=== PATIENT | male | born 1980 | race Caucasian/White ===

== ENCOUNTER 2017-11-05 09:30 | Day surgery (SDC) | payer MEDICARE, OTHER ==
[~2017-11-05] VITALS: Ht 167.6 cm; Wt 111.1 kg
[~2017-11-05 09:30] MED LIST: ALBIPROI INH; ALBU90I INH; ALBU90OI INH; ALBU90OI6 INH; ALBU90OI61 INH; AMOCLA875 PO; AMOX1XR PO; ATOR20 PO; AZIT250 PO; Albuterol2.5 MG/0.5 INH; BP MED; BUSP15 PO; Benadryl 50 mg50 MG PO; CEPH500 PO; CIPR500 PO; CODGUAEL PO; CRUTCH3 USE; CYCL10 PO; DIAZ2 PO; DULO30 PO; ESOM20 PO; FLEXERIL; FLUO20 PO; GABA300 PO; HYDACE10B PO; HYDACE5 PO; HYDACE5325 PO; HYDACE7.5 PO; HYDPAM50; HYDPAM50 PO; HYDR1TAB94 PO; IBUP600 PO; IBUP800 PO; KETO10 PO; LEVFLO500 PO; LISI20 PO; LISI20 RIGHTEAR; LISI5 PO; LOVA20 PO; Lotrimin Ultra12 GM TP; META800 PO; METF500 PO; METPRE4DP PO; METR500 PO; NAPR375 PO; NAPR500 PO; NAPR500EC PO; NAPR550 PO; Naprosyn500 MG PO; Norco 10-325 T1 EACH PO; OMEP10ER PO; OMEP20ER PO; OXYACE5T PO; OXYACE7.5T PO; Omeprazole20 M1; Omeprazole20 M1 PO; PAXIL40 MG PO; PRED10 PO; PRED20 PO; PROACE100 PO; PROAIR RESPICL90 MCG; PROC10 PO; PROM25 PO; PROP60 PO; Percocet 5-3251 EACH PO; Prednisone20 MG PO; Propranolol HCl80 MG PO; RANI150 PO; RANITIDINE; ROBITUSSIN NIG118 ML PO; RXHYDMOR2 PO; RXOXYACE PO; RXPROM25 PO; RXTRAM50 PO; Robaxin500 MG PO; SILSUL1TC TOP; SIMV10 PO; SUBOXEN PO; SUBOXONE 12 MG1 EACH SL; SULTRIDS PO; TRAM50 PO; TRAMADOL; TRAZ50 PO; Ultram50 MG PO; VARE1 PO; VENL150ER PO; VENL75ER PO; [UNRECOGNIZED DRUG - REMARK]; [UNRECOGNIZED DRUG - REMARK]
== END 2017-11-05 12:00 | disposition home or self-care (01) ==
LOC: ORSCSDS 09:30
PROVIDERS: Internal Medicine Gastroenterology
PROC: 0DB58ZX Excision of Esophagus, Via Natural or Artificial Opening Endoscopic, Diagnostic (ICD-10-PCS; principal; 2017-11-05 10:45)
DX: K21.9 Gastro-esophageal reflux disease without esophagitis (principal); G47.30 Sleep apnea, unspecified; I10 Essential (primary) hypertension; F51.9 Sleep disorder not due to a substance or known physiological condition, unspecified; E78.5 Hyperlipidemia, unspecified; B19.20 Unspecified viral hepatitis C without hepatic coma; F17.210 Nicotine dependence, cigarettes, uncomplicated; E11.9 Type 2 diabetes mellitus without complications; E66.9 Obesity, unspecified; Z68.41 Body mass index [BMI] 40.0-44.9, adult; Z79.84 Long term (current) use of oral hypoglycemic drugs; Z79.899 Other long term (current) drug therapy
CPT/HCPCS: 82947; 87081; 88305; J7120

== ENCOUNTER 2018-09-11 08:08 | Day surgery (SDC) | payer MEDICARE, OTHER ==
[~2018-09-11] VITALS: Ht 167.6 cm; Wt 104.0 kg
[~2018-09-11 08:08] MED LIST changes: +AMLO10 PO; +Narcan 0.40.4 MG/ML; +SUBOXONE 2 MG-1 EACH SL; +ZESTORETIC 20-121 EA PO
--- NOTE | 2018-09-11 11:17 | NUR ---
09/11/18 1117 [place] INTRASCALING BLOCK COMPLETED IN THE OR. PT TOLERATED PROCEDURE WELL.
--- NOTE | 2018-09-11 12:42 | NUR ---
09/11/[address] AT BEDSIDE. DUONEB GIVEN PER ORDERS O2 VIA FACE MASK ON ARRIVAL TO PACU. PT STATES IT IS HARD TO BREATHE. SATS 86-88% ON ARRIVAL WITH SUPPLEMENTAL OXYGEN. SATS 92% AT THIS TIME.
== END 2018-09-11 13:56 | disposition home or self-care (01) ==
LOC: ORSCSDS 08:08
PROVIDERS: Orthopaedic Surgery
PROC: 0LQ14ZZ Repair Right Shoulder Tendon, Percutaneous Endoscopic Approach (ICD-10-PCS; principal; 2018-09-11 09:30)
PROC: 0RNJ4ZZ Release Right Shoulder Joint, Percutaneous Endoscopic Approach (ICD-10-PCS; principal; 2018-09-11 09:30)
DX: M75.111 Incomplete rotator cuff tear or rupture of right shoulder, not specified as traumatic (principal); M75.41 Impingement syndrome of right shoulder; M75.51 Bursitis of right shoulder; I10 Essential (primary) hypertension; J45.909 Unspecified asthma, uncomplicated; E11.9 Type 2 diabetes mellitus without complications; B19.20 Unspecified viral hepatitis C without hepatic coma; Z87.891 Personal history of nicotine dependence; E66.01 Morbid (severe) obesity due to excess calories; Z68.37 Body mass index [BMI] 37.0-37.9, adult; Z79.899 Other long term (current) drug therapy
CPT/HCPCS: 82947; C1713; J0171; J0690; J1100; J1885; J2250; J2405; J3010; J7120

== ENCOUNTER 2019-05-04 02:40 | Emergency (ER) | payer MEDICARE, OTHER ==
[~2019-05-04] VITALS: Ht 167.6 cm; Wt 106.6 kg
[~2019-05-04 02:40] MED LIST changes: +Cipro500 MG PO
[2019-05-04] MEDS ORDERED: MAVYRET 100-401 EACH (02:58)
[2019-05-04] MEDS ORDERED: SUBOXONE 4 MG-1 EACH (02:58)
[2019-05-04] MEDS ORDERED: Silvadene20 GM TOP (03:12)
== END 2019-05-04 03:51 | disposition home or self-care (01) ==
LOC: ER 02:40
DX: T22.232A Burn of second degree of left upper arm, initial encounter (principal); T31.0 Burns involving less than 10% of body surface; X13.1XXA Other contact with steam and other hot vapors, initial encounter; Z88.8 Allergy status to other drugs, medicaments and biological substances; Z88.6 Allergy status to analgesic agent; Z88.2 Allergy status to sulfonamides; Z88.0 Allergy status to penicillin; Z88.5 Allergy status to narcotic agent; Z79.899 Other long term (current) drug therapy; Z79.84 Long term (current) use of oral hypoglycemic drugs; J45.909 Unspecified asthma, uncomplicated; I10 Essential (primary) hypertension; E78.5 Hyperlipidemia, unspecified; E11.9 Type 2 diabetes mellitus without complications; F17.210 Nicotine dependence, cigarettes, uncomplicated
CPT/HCPCS: 16020; 99283-25

== ENCOUNTER 2020-01-11 22:50 | Emergency (ER) | payer MEDICARE, OTHER ==
[~2020-01-11] VITALS: Ht 165.1 cm; Wt 104.3 kg
[~2020-01-11 22:50] MED LIST changes: +ALBU2.5V5; +Lisinopril2.5 MG; +MAVYRET 100-401 EACH; +METF500; +Percocet 7.5-31 EACH PO; +Prilosec2.5 MG; +SUBOXONE 4 MG-1 EACH; +Silvadene20 GM TOP; +Zofran4 MG PO
[2020-01-12 00:44] LABS: Source, Urine Clean Catch
[2020-01-12 00:46] LABS: BASOPHILS ABSOLUTE AUTO 0.08 K/mm3 (0.00-0.23); BASOPHILS PERCENT AUTO 1 % (0-2); EOSINOPHILS ABSOLUTE AUTO 0.31 K/mm3 (0.00-0.68); EOSINOPHILS PERCENT AUTO 3 % (0-6); Hematocrit 45.9 % (37.0-53.0); Hemoglobin 16.2 g/dL (13.5-17.5); IMMATURE GRAN ABSOLUTE AUTO 0.03 K/mm3 (0.00-0.10); IMMATURE GRAN PERCENT AUTO 0 % (0-1); LYMPHOCYTES ABSOLUTE AUTO 4.08 K/mm3 (0.84-5.20); LYMPHOCYTES PERCENT AUTO 39 % (21-46); MONOCYTES PERCENT AUTO 7 % (4-13); Mean Corpuscular HGB 31.9 pg (26.0-34.0); Mean Corpuscular HGB Conc 35.3 g/dL (31.5-36.5); Mean Corpuscular Volume 90 fL (80-100); Mean Platelet Volume 9.7 fL (9.1-12.4); NEUTROPHILS ABSOLUTE AUTO 5.35 K/mm3 (1.96-9.15); NEUTROPHILS PERCENT AUTO 51 % (41-73); Platelet Count 227 K/mm3 (150-400); RDW Coefficient Variation 12.5 % (11.7-14.2); RDW Standard Deviation 41.9 fL (35.1-46.3); Red Blood Cell Count 5.08 M/mm3 (4.30-5.90); White Blood Cell Count 10.55 K/mm3 (4.00-11.30)
[2020-01-12 00:47] LABS: Bilirubin, Urine Neg (Neg); Blood, Urine 1+ (Neg); Glucose Qualitative, Urine Neg (Neg); Ketones, Urine Neg (Neg); Leukocyte Esterase, Urine Neg (Neg); Nitrite, Urine Neg (Neg); Protein, Urine 2+ (Neg); Urobilinogen, Urine NORM (Normal)
[2020-01-12 00:49] LABS: Appearance, Urine Clear (Clear); Color, Urine Yellow (P-Yellow)
[2020-01-12 00:59] LABS: Bacteria Few /hpf; Red Blood Cells, Urine 0-2 /hpf (0-2); Squamous Epithelial Cells Rare /hpf (Few); White Blood Cells, Urine 0-2 /hpf (0-5)
[2020-01-12 01:11] LABS: Alanine Aminotransfer (ALT/SGP 70 U/L (12-78); Albumin, Blood 3.3 g/dL (3.4-5.0); Albumin/Globulin Ratio 0.6 (0.8-1.8); Alk Phos 69 U/L (50-136); Anion Gap 4 mmol/L (6-16); Aspartate Aminotrans (AST/SGOT 114 U/L (12-37); Bilirubin, Total 0.7 mg/dL (0.1-1.0); Blood Urea Nitrogen 6 mg/dL (8-24); Bun/Creatinine Ratio 10.5 (12.0-20.0); CO2, Blood 30 mmol/L (21-32); Calcium, Blood 8.6 mg/dL (8.5-10.1); Chloride, Blood 100 mmol/L (98-108); Creatinine, Blood 0.57 mg/dL (0.60-1.20); Globulin, Blood 5.5 g/dL (2.2-4.0); Glomerular Filtration Rate >60 (60-); Glucose, Blood 129 mg/dL (70-99); Potassium, Blood 4.5 mmol/L (3.5-5.5); Sodium, Blood 134 mmol/L (136-145); Total Protein, Blood 8.8 g/dL (6.4-8.2)
[2020-01-12] MEDS ORDERED: Norco 5-325 Ta1 EACH PO (03:21)
[2020-01-12] MEDS ORDERED: ONDA4ODT MM (03:21)
== END 2020-01-12 03:34 | disposition home or self-care (01) ==
LOC: ER 22:50
PROVIDERS: Emergency Medicine
DX: K85.90 Acute pancreatitis without necrosis or infection, unspecified (principal); Z88.5 Allergy status to narcotic agent; Z88.8 Allergy status to other drugs, medicaments and biological substances; Z79.84 Long term (current) use of oral hypoglycemic drugs; Z79.899 Other long term (current) drug therapy; J45.909 Unspecified asthma, uncomplicated; I10 Essential (primary) hypertension; K21.9 Gastro-esophageal reflux disease without esophagitis; Z86.19 Personal history of other infectious and parasitic diseases; E11.9 Type 2 diabetes mellitus without complications; F17.200 Nicotine dependence, unspecified, uncomplicated
CPT/HCPCS: 36415; 74177; 80053; 81001; 83690; 85025; 96360; 96374; 96375; 99283-25; J2405; J3010; J7030; Q9967

== ENCOUNTER → 2021-09-27 | Outpatient (CLI) | payer MEDICARE, OTHER ==
[~2021-09-27] MED LIST changes: +ALMACONE SUSPE355 ML PO; +IBUP400 PO; +Norco 5-325 Ta1 EACH PO; +ONDA4ODT MM
== END | disposition home or self-care (01) ==
LOC: LAB SHORT 14:30 → LAB 14:30
PROVIDERS: Family Medicine
DX: M54.06 Panniculitis affecting regions of neck and back, lumbar region (principal); G89.29 Other chronic pain; Z79.891 Long term (current) use of opiate analgesic
CPT/HCPCS: G0480

== ENCOUNTER → 2022-04-20 | Outpatient (CLI) | payer MEDICARE, OTHER ==
[2022-04-20 18:03] LABS: U Opiates Screen DETECTED
[2022-04-20 18:04] LABS: U Amphetamine Screen Not Detected; U Barbituate Screen Not Detected; U Benzodiazapine Screen Not Detected; U Buprenorphine Screen Not Detected; U Cannabinoids Screen Not Detected; U Cocaine Screen Not Detected; U Methadone Screen Not Detected; U Methamphetamine Screen Not Detected; U Oxycodone Screen DETECTED; U Phencyclidine Screen Not Detected; U Propoxyphene Screen Not Detected
== END | disposition home or self-care (01) ==
LOC: LAB 15:10 → LAB SHORT 15:10
PROVIDERS: Family Medicine
DX: Z51.81 Encounter for therapeutic drug level monitoring (principal); Z79.899 Other long term (current) drug therapy

== ENCOUNTER → 2022-05-12 | Outpatient (CLI) | payer MEDICARE, OTHER ==
[2022-05-12 17:15] LABS: BASOPHILS PERCENT AUTO 1 % (0-2); EOSINOPHILS ABSOLUTE AUTO 0.18 K/mm3 (0.00-0.68); EOSINOPHILS PERCENT AUTO 2 % (0-6); Hematocrit 41.3 % (37.0-53.0); Hemoglobin 15.2 g/dL (13.5-17.5); IMMATURE GRAN ABSOLUTE AUTO 0.03 K/mm3 (0.00-0.10); IMMATURE GRAN PERCENT AUTO 0 % (0-1); LYMPHOCYTES ABSOLUTE AUTO 1.46 K/mm3 (0.84-5.20); LYMPHOCYTES PERCENT AUTO 13 % (21-46); MONOCYTES ABSOLUTE AUTO 1.25 K/mm3 (0.16-1.47); MONOCYTES PERCENT AUTO 11 % (4-13); Mean Corpuscular HGB 33.1 pg (26.0-34.0); Mean Corpuscular HGB Conc 36.8 g/dL (31.5-36.5); Mean Corpuscular Volume 90 fL (80-100); Mean Platelet Volume 12.7 fL (9.1-12.4); NEUTROPHILS ABSOLUTE AUTO 7.98 K/mm3 (1.96-9.15); NEUTROPHILS PERCENT AUTO 73 % (41-73); Platelet Count 72 K/mm3 (150-400); RDW Coefficient Variation 15.3 % (11.7-14.2); RDW Standard Deviation 50.3 fL (35.1-46.3); Red Blood Cell Count 4.59 M/mm3 (4.30-5.90)
[2022-05-12 17:55] LABS: Alanine Aminotransfer (ALT/SGP 40 U/L (12-78); Albumin, Blood 2.5 g/dL (3.4-5.0); Albumin/Globulin Ratio 0.4 (0.8-1.8); Alk Phos 193 U/L (50-136); Anion Gap 8 mmol/L (6-16); Aspartate Aminotrans (AST/SGOT 97 U/L (12-37); Bilirubin, Direct 1.8 mg/dL (0.0-0.3); Bilirubin, Indirect 1.4 mg/dL (0.1-0.7); Bilirubin, Total 3.2 mg/dL (0.1-1.0); Blood Urea Nitrogen 18 mg/dL (8-24); Bun/Creatinine Ratio 15.4 (12.0-20.0); CHOL/HDL RATIO 9.4; CO2, Blood 26 mmol/L (21-32); Calcium, Blood 9.1 mg/dL (8.5-10.1); Chloride, Blood 104 mmol/L (98-108); Cholesterol 245 mg/dL (50-200); Creatinine, Blood 1.17 mg/dL (0.60-1.20); Free Thyroxine 1.23 ng/dL (0.70-1.60); Globulin, Blood 5.7 g/dL (2.2-4.0); Glomerular Filtration Rate 81 (60-); Glucose, Blood 108 mg/dL (70-99); HDL Cholesterol 26 mg/dL (>39); Low Density Lipoprotein Chol 157 mg/dL (0-110); Phosphorus, Blood 3.3 mg/dL (2.5-4.9); Potassium, Blood 4.1 mmol/L (3.5-5.5); Sodium, Blood 138 mmol/L (136-145); Total Protein, Blood 8.2 g/dL (6.4-8.2); Triglycerides 310 mg/dL (30-160); Very Low Density Lipoprot Chol 62 mg/dL (6-32)
[2022-05-24 12:09] LABS: HBSAG SCREEN Negative (Negative); HCV AB >11.0 (0.0-0.9); HEP A AB, IGM Negative (Negative); HEP B CORE AB, TOT Negative (Negative)
== END | disposition home or self-care (01) ==
LOC: LAB SHORT 16:18 → LAB 16:18
PROVIDERS: Family Medicine
DX: E11.8 Type 2 diabetes mellitus with unspecified complications (principal); E78.5 Hyperlipidemia, unspecified; R10.11 Right upper quadrant pain; R74.8 Abnormal levels of other serum enzymes
CPT/HCPCS: 80053; 80061; 82248; 83036; 84100; 84439; 84443; 85025; 86704; 86708; 86803; 87340

== ENCOUNTER 2022-07-12 21:44 | Inpatient (IN) | payer MEDICARE, OTHER ==
[~2022-07-12] VITALS: Ht 167.6 cm; Wt 92.1 kg
[2022-07-12 22:32] LABS: BASOPHILS PERCENT AUTO 1 % (0-2); EOSINOPHILS PERCENT AUTO 1 % (0-6); Hematocrit 38.1 % (37.0-53.0); Hemoglobin 13.7 g/dL (13.5-17.5); IMMATURE GRAN ABSOLUTE AUTO 0.04 K/mm3 (0.00-0.10); IMMATURE GRAN PERCENT AUTO 0 % (0-1); LYMPHOCYTES ABSOLUTE AUTO 4.07 K/mm3 (0.84-5.20); LYMPHOCYTES PERCENT AUTO 26 % (21-46); MONOCYTES ABSOLUTE AUTO 1.77 K/mm3 (0.16-1.47); MONOCYTES PERCENT AUTO 11 % (4-13); Mean Corpuscular HGB 35.5 pg (26.0-34.0); Mean Corpuscular Volume 99 fL (80-100); Mean Platelet Volume 10.9 fL (9.1-12.4); NEUTROPHILS ABSOLUTE AUTO 9.72 K/mm3 (1.96-9.15); NEUTROPHILS PERCENT AUTO 62 % (41-73); Platelet Count 142 K/mm3 (150-400); RDW Coefficient Variation 18.7 % (11.7-14.2); RDW Standard Deviation 67.5 fL (35.1-46.3); Red Blood Cell Count 3.86 M/mm3 (4.30-5.90)
[2022-07-12 22:52] LABS: Albumin, Blood 2.6 g/dL (3.4-5.0); Albumin/Globulin Ratio 0.5 (0.8-1.8); Bilirubin, Total 2.5 mg/dL (0.1-1.0); Bun/Creatinine Ratio 13.2 (12.0-20.0); Calcium, Blood 9.2 mg/dL (8.5-10.1); Creatinine, Blood 0.76 mg/dL (0.60-1.20); Globulin, Blood 5.1 g/dL (2.2-4.0); Potassium, Blood 4.3 mmol/L (3.5-5.5); Total Protein, Blood 7.7 g/dL (6.4-8.2)
[2022-07-12 23:13] LABS: Influenza A, PCR NEGATIVE (NEGATIVE); Influenza B, PCR NEGATIVE (NEGATIVE); Resp Syncytial Virus, PCR NEGATIVE (NEGATIVE); SARS-Cov-2 (COVID-19) PCR, MMC NEGATIVE (NEGATIVE)
[2022-07-13] MEDS ORDERED: FOLI1 PO (02:26)
[2022-07-13] MEDS ORDERED: MAGNESIUM OXID500 MG PO (02:26)
[2022-07-13] MEDS ORDERED: B-1100 M1 PO (02:26)
[2022-07-13] MEDS ORDERED: ERGO50000 PO (02:26)
[2022-07-13] MEDS ORDERED: LACT10SY PO (02:26)
[2022-07-13] MEDS ORDERED: LEVE500 PO (02:27)
[2022-07-13 08:27] LABS: BASOPHILS ABSOLUTE AUTO 0.13 K/mm3 (0.00-0.23); BASOPHILS PERCENT AUTO 1 % (0-2); EOSINOPHILS PERCENT AUTO 1 % (0-6); Hematocrit 36.7 % (37.0-53.0); Hemoglobin 13.3 g/dL (13.5-17.5); IMMATURE GRAN ABSOLUTE AUTO 0.05 K/mm3 (0.00-0.10); IMMATURE GRAN PERCENT AUTO 0 % (0-1); LYMPHOCYTES ABSOLUTE AUTO 4.87 K/mm3 (0.84-5.20); LYMPHOCYTES PERCENT AUTO 31 % (21-46); MONOCYTES ABSOLUTE AUTO 1.52 K/mm3 (0.16-1.47); MONOCYTES PERCENT AUTO 10 % (4-13); Mean Corpuscular HGB 35.4 pg (26.0-34.0); Mean Corpuscular HGB Conc 36.2 g/dL (31.5-36.5); Mean Corpuscular Volume 98 fL (80-100); Mean Platelet Volume 10.6 fL (9.1-12.4); NEUTROPHILS ABSOLUTE AUTO 8.89 K/mm3 (1.96-9.15); NEUTROPHILS PERCENT AUTO 57 % (41-73); Platelet Count 128 K/mm3 (150-400); RDW Coefficient Variation 18.7 % (11.7-14.2); RDW Standard Deviation 66.7 fL (35.1-46.3); Red Blood Cell Count 3.76 M/mm3 (4.30-5.90); White Blood Cell Count 15.66 K/mm3 (4.00-11.30)
[2022-07-13 08:38] LABS: Albumin, Blood 2.4 g/dL (3.4-5.0); Albumin/Globulin Ratio 0.5 (0.8-1.8); Bilirubin, Total 3.1 mg/dL (0.1-1.0); Bun/Creatinine Ratio 13.4 (12.0-20.0); Creatinine, Blood 0.82 mg/dL (0.60-1.20); Globulin, Blood 4.6 g/dL (2.2-4.0); Potassium, Blood 4.3 mmol/L (3.5-5.5)
--- NOTE | 2022-07-13 14:48 | NUR ---
REPORT RECIEVED FROM ER NURSE AT 3675.
--- NOTE | 2022-07-13 15:29 | NUR ---
PT ARRIVED TO PCU AT 1500 VIA GURNEY AND ON RA. PT ABLE TO TRANSFER SELF FROM GURNEY TO PCU ON HIS OWN, INDEPENDENT, TOLERATED WELL. PT REPORTS LEFT SIDED CHEST PAIN THAT RADIATES TO HIS LEFT SIDE OF HIS NECK AND HIS LEFT AXILLARY, PAIN 9/10. NOTIFIED, AWAITING PAIN MED ORDERS. PT ORIENTED TO ROOM. PT WAS ABLE TO TRANSFER SELF TO BATHROOM, INDEPENDENT, TOLERATED WELL. PT LEFT PCU FOR STRESS TEST AT 1530 VIA WHEELCHAIR AND ON RA.
--- NOTE | 2022-07-13 17:26 | NUR ---
UPDATE PT REPORTED 9/10 CHEST PAIN THAT RAFIATES TO HIS LEFT NECK AND LEFT AXILLARY. DR NOTIFIED, TORADOL ORDERED AND GIVEN. PT THEN REPORTS SEVERE HEADACHE FROM TORADOL AND NO CHEST PAIN RELIEF. PT WAS ASKED IF HE TAKES ANYTHING THAT HAS HELPED HIS PAIN LEVEL, PT RESPONDED "WHAT IS THAT MEDICATION THAT THEY LACE WITH THINGS? THE ONE THAT IS LIKE FENT OR SOMETHING." WHEN THIS RN MENTIONED FENTANYL, PT REPOSNDED "YEAH. THEY SWITCHED MY MEDICATION TO THAT AND IT WORKED." THIS RN INFORMED PT THAT THE DR GAVE A STRICT ORDER OF NO NARCOTICS. THIS RN AGAIN CONTACTED DR ABOUT UNRELIEVED PAIN, SAID TO ORDER TRAMADOL. PT SAID "I CANNOT TAKE TRAMADOL. IT CLOSED OFF MY AIRWAY LAST TIME I TOOK IT AND I HAD TO BE ADMITTED TO THE HOSPITAL." PT ASKED FOR THE FENTANYL AGAIN. PT REMINDED THAT NO NARCOTICS CAN BE ORDERED. PT THEN REPOSDED "I MIGHT JUST WAIT FOR MY THEN. I MIGHT JUST HAVE TO LEAVE BECAUSE I CANNOT TAKE THIS." PT INFORMED THAT HE IS ABLE TO LEAVE BUT IT WOULD BE AGAINST MEDICAL ADVICE AND THAT HE WOULD NEED TO FILL OUT A AMA DOCUMENT. PT INFORMED THAT IT IS HIGLY RECOMMENDED TO STAY SINCE HE IS ACTIVELY HAVING CHEST PAIN AND THAT HE IS PREPARED TO HAVE A STRESS TEST COMPLETED IN THE MORNING.
[2022-07-14 04:07] LABS: BASOPHILS ABSOLUTE AUTO 0.09 K/mm3 (0.00-0.23); BASOPHILS PERCENT AUTO 1 % (0-2); EOSINOPHILS ABSOLUTE AUTO 0.26 K/mm3 (0.00-0.68); EOSINOPHILS PERCENT AUTO 2 % (0-6); Hematocrit 35.7 % (37.0-53.0); Hemoglobin 13.3 g/dL (13.5-17.5); IMMATURE GRAN ABSOLUTE AUTO 0.04 K/mm3 (0.00-0.10); IMMATURE GRAN PERCENT AUTO 0 % (0-1); LYMPHOCYTES ABSOLUTE AUTO 4.07 K/mm3 (0.84-5.20); LYMPHOCYTES PERCENT AUTO 29 % (21-46); MONOCYTES ABSOLUTE AUTO 1.75 K/mm3 (0.16-1.47); MONOCYTES PERCENT AUTO 13 % (4-13); Mean Corpuscular HGB 36.1 pg (26.0-34.0); Mean Corpuscular HGB Conc 37.3 g/dL (31.5-36.5); Mean Corpuscular Volume 97 fL (80-100); Mean Platelet Volume 11.6 fL (9.1-12.4); NEUTROPHILS ABSOLUTE AUTO 7.73 K/mm3 (1.96-9.15); NEUTROPHILS PERCENT AUTO 55 % (41-73); Platelet Count 143 K/mm3 (150-400); RDW Coefficient Variation 18.3 % (11.7-14.2); RDW Standard Deviation 64.7 fL (35.1-46.3); Red Blood Cell Count 3.68 M/mm3 (4.30-5.90); White Blood Cell Count 13.94 K/mm3 (4.00-11.30)
[2022-07-14 04:28] LABS: Albumin, Blood 2.1 g/dL (3.4-5.0); Albumin/Globulin Ratio 0.4 (0.8-1.8); Bilirubin, Total 3.6 mg/dL (0.1-1.0); Bun/Creatinine Ratio 18.2 (12.0-20.0); Creatinine, Blood 0.94 mg/dL (0.60-1.20); Globulin, Blood 4.8 g/dL (2.2-4.0); Potassium, Blood 5.1 mmol/L (3.5-5.5); Total Protein, Blood 6.9 g/dL (6.4-8.2)
--- NOTE | 2022-07-14 05:54 | NUR ---
NIGHT SUPERVISOR SUMMARY ASSUMED CARE OF PT AT 1900. HE IS ALERT AND ORIENTED X4, COOPERATIVE, THOUGH A BIT AGITATED WITH STAYING IN THE HOSPITAL. HE CONTINUES TO COMPLAIN OF 8/10 PAIN THAT HE STATES STARTS ON HIS SIDES AND WRAPS AROUND THE UPPER ABDOMEN INTO HIS LOWER CHEST. PT MEDICATED X2 WITH TORADOL. HE WAS INFORMED OF THE INABILITY TO MEDICATE WITH NARCOTICS DUE TO STRESS TEST THIS AM. PT UNDERSTANDING OF THIS. TROPONINS WERE TRENDING DOWN AND HAD A SLIGHT RISE TO 302 AT 0000 SO REPEAT WAS DRAWN AT 0400, THAT WAS DECREASED TO 288. PT WAS UNABLE TO SLEEP THIS SHIFT DESPITE MELATONIN AND NOC VISTARIL. BP SLIGHTLY ELEVATED THIS AM SO GIVEN IV HYDRALAZINE. PT HAS BEEN SINUS IN THE 50S AND 60S ON TELE. NO COMPLAINTS OF SOB AND SATTING >92%.
[2022-07-14 07:20] LABS: C-REACTIVE PROTEIN, EXT RANGE <0.290 mg/dL (0.000-0.300)
[2022-07-14 07:23] LABS: CPK Creatine Kinase 83 U/L (39-308)
--- NOTE | 2022-07-14 14:18 | NUR ---
UPDATEAT 1414, PT WAS SEEN BY THIS RN WALKING IN THE HALLWAY TOWARDS SURGICAL UNIT. DURING SHIFT CHANGE, THE NIGHT RN NOTIFIED THIS RN THAT THE PT HAS HIS SISTER ON THE SURGICAL FLOOR. PT WALKED BY, THIS RN ASKED PT IF HE WAS HEADING TO HIS SISTER'S ROOM. PT ANSWERED "YES" AND HEADED THROUGH THE DOORS TO THE SURGICAL UNIT. Sensor Tower NOTIFIED THIS RN THAT THE PT IS NO LONGER ON TELEMTRY AT 1420.
--- NOTE | 2022-07-14 16:38 | NUR ---
AMA UPDATE PT LEFT AMA AT 1505. AT 1445 THIS RN WAS NOTIFIED BY IMPORT CLERK THAT PT IS IRRITATED ABOUT NOT GOING HOME YET. THIS RN WENT TO PT ROOM TO ASSESS PT. PT INSTANTLY ASKED FOR HIS IV TO BE REMOVED STATING "YOU NEED TO TAKE THIS OUT SO I CAN GO HOME." PT STATED "I AM NOT GETTING THE MEDS THAT I NEED. THAT TORADOL SHIT MAKES MY ASS BURN. THAT SHIT IS NOT WORKING." THIS RN INFORMED PT THAT DISCHARGE INSTRUCTIONS HAVE NOT BEEN ORDERED YET AND THAT THE DOCTOR HAS CAME BY TO INFORM THIS RN THAT SHE IS STILL WAITING FOR THE RESULTS OF THE STRESS TEST AND ABDOMEN ULTRASOUND. PT RESPONDED "NO THAT IS BULLSHIT. THE DOCTOR TOLD ME WHEN I WAS GETTING DONE WITH MY STRESS TEST, THAT THE RESULTS WOULD BE DONE IN LIKE 20 MINUTES." PT WAS INFORMED THAT MARIA ISABEL CANNOT FORCE HIM TO STAY BUT IF HE WAS TO LEAVE IT WOULD BE AGAINST MEDICAL ADVICE AND THAT HE WOULD HAVE TO FILL OUT A AMA DOCUMENT. PT STATED "GET THE PAPER THEN." THIS RN CONTACTED DOCTOR TO NOTIFY HER THAT THE PT WAS ASKING TO AMA. DOCTOR SAID THAT SHE WOULD COME TALK TO HIM. DOCTOR WAS INFORMED THAT PT WAS PRETTY WORKED UP IN THE ROOM AND THIS RN STATED THAT HE WOULD BE PRESENT WITH DOCTOR WHEN SHE CAME TO TALK TO PT. DOCTOR ENTERED PT TYSON WITH THIS RN AT 1500. DR INFORMED PT THAT THE RESULTS OF THE ULTRASOUND HAVE NOT BEEN COMPLETED YET BUT STATED THAT HIS STRESS TEST WAS NORMAL. PT SAID "OK, THAT IS FINE." PT CONTINUOUSLY STATED THAT HE WANTS TO LEAVE. DOCTOR INFORMED PT THAT HE COULD LEAVE BUT IT WOULD BE AGAINST MEDICAL ADVICE. PT RESPONDED "NO IT IS NOT. I WAS TOLD THAT I WOULD BE OUT OF HERE BY 3 O'CLOCK." PT STATED THAT HE HAS ALREADY CONTACTED HIS PRIMARY DOCTOR AND THAT "SHE WILL GIVE ME THE MEDS THAT I NEED." PT THEN STATED THAT "NO ONE HAS COME TO SEE ME SINCE 9 O'CLOCK THIS MORNING. I HAVE CALLED WITH THE REMOTE AND NO ONE EVER CAME." THIS RN INFORMED PT THAT MANY STAFF, INCLUDING THE DOCTOR, HAVE DONE ROUNDS ON HIM AND THAT HE WAS LEFT ALONE BECAUSE HE WAS FINALLY SLEEPING AT THE TIME. PT RESPONDED "NO. EVERYONE ALWAYS WOKE ME UP ALL THE OTHER TIMES." PT THEN REQUESTED TO LEAVE AGAIN. THIS RN BEGAN TO GO OVER THE AMA DOCUMENT WITH PT. PT RESPONDED "I'M NOT SIGNING THAT SHIT. I'M NOT LEAVING AMA." DOCTOR STATED THAT IT WOULD NOT BE AGAINST HIS WILL. PT STATED AGAIN THAT HE WOULD "NOT SIGN IT." DOCTOR TOLD PT THAT IS FINE. PT ASKED FOR IV TO BE REMOVED. THIS RN REMOVED IV, IV INTACT. PT STATED HE WAS WALKING OUT OF ROOM, "MY PRIMARY DOCTOR WILL GIVE ME THE MEDS THAT I NEED."
== END 2022-07-14 15:21 | disposition left against medical advice (07) | DRG 205 ==
LOC: ER 21:44 → ERHOLD 07-13 05:20 → PCU 07-13 14:59
PROVIDERS: Family Medicine; Physician Assistant; ADMIT Internal Medicine
DX: M94.0 Chondrocostal junction syndrome [Tietze] (principal); I21.A1 Myocardial infarction type 2; E72.20 Disorder of urea cycle metabolism, unspecified; E87.1 Hypo-osmolality and hyponatremia; K86.1 Other chronic pancreatitis; Z20.822 Contact with and (suspected) exposure to COVID-19; Z28.21 Immunization not carried out because of patient refusal; J45.909 Unspecified asthma, uncomplicated; I10 Essential (primary) hypertension; K21.9 Gastro-esophageal reflux disease without esophagitis; F17.210 Nicotine dependence, cigarettes, uncomplicated; E78.5 Hyperlipidemia, unspecified; K70.30 Alcoholic cirrhosis of liver without ascites; R56.9 Unspecified convulsions; D69.59 Other secondary thrombocytopenia; E11.9 Type 2 diabetes mellitus without complications; Z98.890 Other specified postprocedural states; Z88.1 Allergy status to other antibiotic agents; Z88.6 Allergy status to analgesic agent; Z79.899 Other long term (current) drug therapy
CPT/HCPCS: 0241U; 36415; 71046; 76705; 78452; 80053; 82140; 82550; 82947; 83690; 84484; 85025; 85651; 86140; 93005; 93010; 93017; 96374; 96375; 99284-25; A9270; A9500; C8929; J0280; J0360; J1650; J1885; J2785; J3010; Q9957

== ENCOUNTER 2022-07-23 14:52 | Inpatient (IN) | payer MEDICARE, OTHER ==
[~2022-07-23] VITALS: Ht 172.7 cm; Wt 104.3 kg
[~2022-07-23 14:52] MED LIST changes: -ALBU2.5V5; +ALBU2.5V5 INH; +B-1100 M1 PO; +ERGO50000 PO; +FOLI1 PO; +LACT10SY PO; +LEVE500 PO; -Lisinopril2.5 MG; +Lisinopril2.5 MG PO; +MAGNESIUM OXID500 MG PO; -METF500; -Prilosec2.5 MG; +Prilosec2.5 MG PO
[2022-07-23 15:43] LABS: BASOPHILS ABSOLUTE AUTO 0.06 K/mm3 (0.00-0.23); BASOPHILS PERCENT AUTO 0 % (0-2); EOSINOPHILS ABSOLUTE AUTO 0.01 K/mm3 (0.00-0.68); EOSINOPHILS PERCENT AUTO 0 % (0-6); Hematocrit 37.6 % (37.0-53.0); Hemoglobin 13.7 g/dL (13.5-17.5); IMMATURE GRAN ABSOLUTE AUTO 0.38 K/mm3 (0.00-0.10); IMMATURE GRAN PERCENT AUTO 1 % (0-1); LYMPHOCYTES PERCENT AUTO 4 % (21-46); MONOCYTES ABSOLUTE AUTO 1.36 K/mm3 (0.16-1.47); MONOCYTES PERCENT AUTO 5 % (4-13); Mean Corpuscular HGB 35.8 pg (26.0-34.0); Mean Corpuscular HGB Conc 36.4 g/dL (31.5-36.5); Mean Corpuscular Volume 98 fL (80-100); Mean Platelet Volume 11.9 fL (9.1-12.4); NEUTROPHILS PERCENT AUTO 89 % (41-73); Platelet Count 126 K/mm3 (150-400); RDW Coefficient Variation 15.2 % (11.7-14.2); RDW Standard Deviation 54.8 fL (35.1-46.3); Red Blood Cell Count 3.83 M/mm3 (4.30-5.90); White Blood Cell Count 26.81 K/mm3 (4.00-11.30)
[2022-07-23 15:58] LABS: Albumin, Blood 2.5 g/dL (3.4-5.0); Albumin/Globulin Ratio 0.5 (0.8-1.8); Bilirubin, Total 3.8 mg/dL (0.1-1.0); Bun/Creatinine Ratio 16.2 (12.0-20.0); Calcium, Blood 9.5 mg/dL (8.5-10.1); Creatinine, Blood 0.99 mg/dL (0.60-1.20); Globulin, Blood 5.1 g/dL (2.2-4.0); Potassium, Blood 4.2 mmol/L (3.5-5.5); Total Protein, Blood 7.6 g/dL (6.4-8.2)
[2022-07-23 16:01] LABS: Influenza A, PCR NEGATIVE (NEGATIVE); Influenza B, PCR NEGATIVE (NEGATIVE); Resp Syncytial Virus, PCR NEGATIVE (NEGATIVE); SARS-Cov-2 (COVID-19) PCR, MMC NEGATIVE (NEGATIVE)
[2022-07-23 16:41] LABS: Source, Urine Clean Catch
[2022-07-23 16:46] LABS: Bilirubin, Urine Neg (Neg); Blood, Urine 3+ (Neg); Color, Urine Amber (P-Yellow); Glucose Qualitative, Urine Neg (Neg); Ketones, Urine Neg (Neg); Leukocyte Esterase, Urine Neg (Neg); Nitrite, Urine Neg (Neg); Protein, Urine 3+ (Neg); Urobilinogen, Urine 1+ (Normal)
[2022-07-23 17:00] LABS: Appearance, Urine Clear (Clear)
[2022-07-23 17:01] LABS: Bacteria Few /hpf; Red Blood Cells, Urine 0-2 /hpf (0-2); Squamous Epithelial Cells Rare /hpf (Few); White Blood Cells, Urine 0-2 /hpf (0-5)
[2022-07-23 19:59] LABS: Glucose, CSF 90 mg/dL (40-70)
[2022-07-23 20:08] LABS: Appearance, CSF Clear (Clear); Color, CSF No Color (No Color); RBC Count, CSF 272 /mm3 (0-0); WBC Count, CSF 5 /mm3 (0-5)
[2022-07-23 20:22] LABS: RBC Count, CSF 0 /mm3 (0-0); WBC Count, CSF 0 /mm3 (0-5)
[2022-07-23 20:24] LABS: Appearance, CSF Clear (Clear); Color, CSF No Color (No Color)
[2022-07-23 21:35] LABS: Cryptococcus Neoformans/Gattii Not Detected (NOT DETECT); Enterovirus Not Detected (NOT DETECT); Escherichia Coli K1 Not Detected (NOT DETECT); Haemophilus Influenza Not Detected (NOT DETECT); Herpes Simplex Virus 1 Not Detected (NOT DETECT); Herpes Simplex Virus 2 Not Detected (NOT DETECT); Human Herpesvirus 6 Not Detected (NOT DETECT); Human Parechovirus Not Detected (NOT DETECT); Listeria Monocytogenes Not Detected (NOT DETECT); Neisseria Meningitidis Not Detected (NOT DETECT); Streptococcus Agalactiae Not Detected (NOT DETECT); Streptococcus Pneumoniae Not Detected (NOT DETECT); Varicella Zoster Virus Not Detected (NOT DETECT)
[2022-07-23] MEDS ORDERED: ERGO50000 PO (21:54)
[2022-07-23] MEDS ORDERED: OXYC10TA19 PO (21:58)
[2022-07-23] MEDS ORDERED: METO100ER PO (21:59)
[2022-07-23] MEDS ORDERED: MULVITA PO (22:00)
[2022-07-23] MEDS ORDERED: VENL150ER PO (22:00)
[2022-07-23] MEDS ORDERED: IRBESARTAN-HCT1 EAC3 PO (22:01)
[2022-07-23] MEDS ORDERED: PROP80ER PO (22:13)
[2022-07-24 03:47] LABS: Hematocrit 32.7 % (37.0-53.0); Hemoglobin 12.1 g/dL (13.5-17.5); Mean Corpuscular HGB 36.1 pg (26.0-34.0); Mean Corpuscular Volume 98 fL (80-100); Mean Platelet Volume 11.6 fL (9.1-12.4); Platelet Count 100 K/mm3 (150-400); RDW Coefficient Variation 15.1 % (11.7-14.2); RDW Standard Deviation 54.3 fL (35.1-46.3); Red Blood Cell Count 3.35 M/mm3 (4.30-5.90); White Blood Cell Count 30.74 K/mm3 (4.00-11.30)
[2022-07-24 04:23] LABS: Albumin/Globulin Ratio 0.5 (0.8-1.8); Bilirubin, Total 3.4 mg/dL (0.1-1.0); Bun/Creatinine Ratio 20.6 (12.0-20.0); Calcium, Blood 8.5 mg/dL (8.5-10.1); Creatinine, Blood 1.26 mg/dL (0.60-1.20); Globulin, Blood 4.2 g/dL (2.2-4.0); Magnesium, Blood 1.9 mg/dL (1.6-2.4); Potassium, Blood 4.1 mmol/L (3.5-5.5); Total Protein, Blood 6.2 g/dL (6.4-8.2)
[2022-07-24 05:51] LABS: BAND PERCENT MAN 16 % (0-8); BASOPHILS PERCENT MAN 0 % (0-2); EOSINOPHILS PERCENT MAN 0 % (0-6); LYMPHOCYTES ABSOLUTE MAN 1.22 K/mm3 (0.84-5.20); LYMPHOCYTES PERCENT MAN 4 % (21-46); METAMYELOCYTE ABSOLUTE MAN 1.84 K/mm3 (0.00-0.00); METAMYELOCYTE PERCENT MAN 6 % (0-0); MONOCYTES ABSOLUTE MAN 1.22 K/mm3 (0.16-1.47); MONOCYTES PERCENT MAN 4 % (4-13); MYELOCYTE ABSOLUTE MAN 0.61 K/mm3 (0.00-0.00); MYELOCYTE PERCENT MAN 2 % (0-0); NEUTROPHILS ABSOLUTE MAN 25.82 K/mm3 (1.96-9.15); SEG NEUTROPHILS PERCENT MAN 68 % (41-73); TOTAL CELLS COUNTED 100
--- NOTE | 2022-07-24 05:59 | NUR ---
SHIFT SUMMARY: NEURO: PT LETHARGIC, RESPONDS TO VERBAL STIMULI THENR GOES BACK TO SLEEP CARDIAC: PT NORMOTENSIVE, NSR. ELEVATED TROPONINS GIGU: VOIDS TO URINAL RESP: ON 4L NC. PT STATED DIFFICULTY BREATHING STARTING YESTERDAY. LUNGS COARSE, CRACKLY
--- NOTE | 2022-07-24 09:10 | NUR ---
ASSUMED CARE: REPORT RECEIVED FROM IBETH Pedraza RN. ASSUMED CARE OF THIS PT AT APPROX 0700. ON ASSESSMENT, THE PT IS RESTING QUIETLY. HE AWAKENS EASILY TO VERBAL STIMULUS & STS THAT HE IS "COLD." WARM BLANKETS PROVIDED. LS ARE COARSE T/O, PT ON BIPAP W/ SETTINGS: 14/7 & 3L O2 BLEED-IN. O2 SATS > 92% & PT TOLERATING WELL. MONITOR SHOWS SR W/ HR 80s, BP STABLE. PT DENIES HUNGER THIS AM. VOIDS URINE USING URINAL AT BEDSIDE. SKIN OVERALL INTACT, Q2H REPOSITIONING TO MAINTAIN SKIN INTEGRITY. LP SITE WNL, BANDAID IN PLACE. WILL CONTINUE TO MONITOR & UPDATE NEEDED.
[2022-07-24] MEDS ORDERED: lactulose 20 gram/30 PO (10:28)
--- NOTE | 2022-07-24 11:50 | NUR ---
DR DEWITT: PROVIDER AT BEDSIDE TO EVAL PT. VERIFIED THAT PROVIDER DOES WANT LOVENOX GIVEN W/ PT's PLT COUNT 100 ON AM LABS. ORDERS PLACED FOR MEDICAL STATUS NO TELE. NO OTHER CHANGES AT THIS TIME.
--- NOTE | 2022-07-24 19:00 | NUR ---
SHIFT SUMMARY: NO ACUTE CHANGES SINCE PRIOR UPDATES. PT REMAINS A&O, PLEASANT & COOPERATIVE. STS BEING "SLEEPY" STILL. HE HAS CONTINUED C/O PAIN WHICH HAS BEEN IMPROVED SLIGHLY W/ INCREASED OXICODONE FREQUENCY PER HOME DOSING. LS COARSE, IMPROVED FROM THIS AM. PT ON RA W/ O2 SATS > 92% ON AVG. NO TELE, MEDICAL STATUS. VSS. HAS POOR APPETITE. BM x1, NOT VISUALIZED BY THIS RN, PT STS "NORMAL." VOIDS URINE USING URINAL AT BEDSIDE. SKIN OVERALL INTACT, Q2H REPOSITIONING TO MAINTAIN SKIN INTEGRITY. REPORT HAS BEEN GIVEN TO MICHELLE Hager RN TO ASSUME CARE ON MED FLOOR.
--- NOTE | 2022-07-25 05:18 | NUR ---
SHIFT SUMMARY PT ICU TRANSFER TO UNIT. A&O X4. VSS. PT C/O PAIN 03/15 TO LOWER BACK. PAIN MANAGED WITH PRN OXY Q6H. INDEPENDENT IN ROOM.
[2022-07-25 09:53] LABS: Albumin/Globulin Ratio 0.4 (0.8-1.8); Bilirubin, Total 2.8 mg/dL (0.1-1.0); Bun/Creatinine Ratio 21.5 (12.0-20.0); Calcium, Blood 8.5 mg/dL (8.5-10.1); Creatinine, Blood 0.7 mg/dL (0.60-1.20); Globulin, Blood 4.7 g/dL (2.2-4.0); Magnesium, Blood 1.5 mg/dL (1.6-2.4); Potassium, Blood 4.3 mmol/L (3.5-5.5); Total Protein, Blood 6.7 g/dL (6.4-8.2)
[2022-07-25 10:55] LABS: BASOPHILS ABSOLUTE AUTO 0.09 K/mm3 (0.00-0.23); BASOPHILS PERCENT AUTO 0 % (0-2); EOSINOPHILS ABSOLUTE AUTO 0.11 K/mm3 (0.00-0.68); EOSINOPHILS PERCENT AUTO 1 % (0-6); Hemoglobin 12.3 g/dL (13.5-17.5); IMMATURE GRAN ABSOLUTE AUTO 0.17 K/mm3 (0.00-0.10); IMMATURE GRAN PERCENT AUTO 1 % (0-1); LYMPHOCYTES ABSOLUTE AUTO 3.93 K/mm3 (0.84-5.20); LYMPHOCYTES PERCENT AUTO 17 % (21-46); MONOCYTES ABSOLUTE AUTO 1.25 K/mm3 (0.16-1.47); MONOCYTES PERCENT AUTO 5 % (4-13); Mean Corpuscular HGB Conc 37.3 g/dL (31.5-36.5); Mean Corpuscular Volume 97 fL (80-100); Mean Platelet Volume 12.3 fL (9.1-12.4); NEUTROPHILS ABSOLUTE AUTO 17.47 K/mm3 (1.96-9.15); NEUTROPHILS PERCENT AUTO 76 % (41-73); Platelet Count 101 K/mm3 (150-400); RDW Coefficient Variation 15.1 % (11.7-14.2); RDW Standard Deviation 53.5 fL (35.1-46.3); Red Blood Cell Count 3.42 M/mm3 (4.30-5.90); White Blood Cell Count 23.02 K/mm3 (4.00-11.30)
[2022-07-25] MEDS ORDERED: AZIT500 PO (15:51)
[2022-07-25] MEDS ORDERED: LACT (15:52)
[2022-07-25] MEDS ORDERED: LACT PO (15:54)
[2022-07-25] MEDS ORDERED: CEFD300 PO (15:55)
[2022-07-25] MEDS ORDERED: SPIR25 PO (15:56)
--- NOTE | 2022-07-25 16:26 | NUR ---
DISCHARGE PT DISCHARGED AFTER ABD ULTRASOUND. NO PARACENTESIS INDICATED AT THIS TIME. PT EDUCATED ON NEW MEDICATIONS WITH FAMILY IN ROOM TO HELP THE PT UNDERSTAND DC INSTRUCTIONS. PT DENIES NEED FOR FURTHER INSTRUCTION AT THIS TIME. PT REFUSED WHEELCHAIR RIDE OUT OF HOSPITALS. ESCORTED TO ELEVATORS WITH HIS FAMILY. IV REMOVED & INTACT. COBAN PRESSURE IN PLACE.
== END 2022-07-25 16:22 | disposition home or self-care (01) | DRG 871 ==
LOC: ER 14:52 → ICUE 14:53 → PCU 14:53 → ICUE 07-24 01:24 → MEDS 07-24 19:08
PROVIDERS: Physician Assistant; Student in an Organized Health Care Education/Training Program; ADMIT Family Medicine
PROC: 009U3ZX Drainage of Spinal Canal, Percutaneous Approach, Diagnostic (ICD-10-PCS; 2022-07-23)
PROC: 3E033XZ Introduction of Vasopressor into Peripheral Vein, Percutaneous Approach (ICD-10-PCS; principal; 2022-07-24)
PROC: 3E03329 Introduction of Other Anti-infective into Peripheral Vein, Percutaneous Approach (ICD-10-PCS; 2022-07-24)
DX: A41.9 Sepsis, unspecified organism (principal); I21.A1 Myocardial infarction type 2; J18.9 Pneumonia, unspecified organism; E87.1 Hypo-osmolality and hyponatremia; E87.20 Acidosis, unspecified; G93.40 Encephalopathy, unspecified; R65.20 Severe sepsis without septic shock; R56.9 Unspecified convulsions; K70.31 Alcoholic cirrhosis of liver with ascites; E11.9 Type 2 diabetes mellitus without complications; E83.42 Hypomagnesemia; B19.20 Unspecified viral hepatitis C without hepatic coma; J45.909 Unspecified asthma, uncomplicated; I10 Essential (primary) hypertension; K21.9 Gastro-esophageal reflux disease without esophagitis; I95.9 Hypotension, unspecified; E78.5 Hyperlipidemia, unspecified; F17.210 Nicotine dependence, cigarettes, uncomplicated; F10.10 Alcohol abuse, uncomplicated; E80.6 Other disorders of bilirubin metabolism; R51.9 Headache, unspecified; D69.6 Thrombocytopenia, unspecified; E88.09 Other disorders of plasma-protein metabolism, not elsewhere classified; D63.8 Anemia in other chronic diseases classified elsewhere; Z20.822 Contact with and (suspected) exposure to COVID-19; Z88.5 Allergy status to narcotic agent; Z88.8 Allergy status to other drugs, medicaments and biological substances; Z79.84 Long term (current) use of oral hypoglycemic drugs; Z79.811 Long term (current) use of aromatase inhibitors; Z79.899 Other long term (current) drug therapy; Z79.51 Long term (current) use of inhaled steroids; Z79.891 Long term (current) use of opiate analgesic; Z90.81 Acquired absence of spleen; Z98.890 Other specified postprocedural states
CPT/HCPCS: 0241U; 36415; 62270; 71045; 76705; 80053; 81001; 82140; 82945; 82947; 83605; 83690; 83735; 84157; 84484; 85025; 87070; 87205; 87483; 89051; 93005; 93010; 94660; 94760; 94762; 96361; 96365-59; 96366-59; 96367-59; 96372; 96375; 96375-59; 96376; 99285-25; A9270; G0378; J0456; J0696; J1650; J1815; J3010; J3370; J3475; J7030; J7050; J7120

== ENCOUNTER → 2022-08-01 | Outpatient (CLI) | payer MEDICARE, OTHER ==
[~2022-08-01] MED LIST changes: +AZIT500 PO; +CEFD300 PO; +IRBESARTAN-HCT1 EAC3 PO; +LACT; +LACT PO; +METO100ER PO; +MULVITA PO; +OXYC10TA19 PO; +PROP80ER PO; +SPIR25 PO; +lactulose 20 gram/30 PO
[2022-08-01 17:13] LABS: U Amphetamine Screen Not Detected; U Barbituate Screen Not Detected; U Benzodiazapine Screen DETECTED; U Buprenorphine Screen Not Detected; U Cannabinoids Screen Not Detected; U Cocaine Screen Not Detected; U Methadone Screen Not Detected; U Methamphetamine Screen Not Detected; U Opiates Screen DETECTED; U Oxycodone Screen DETECTED; U Phencyclidine Screen Not Detected; U Propoxyphene Screen Not Detected
== END | disposition home or self-care (01) ==
LOC: LAB SHORT 15:01
PROVIDERS: Physician Assistant
DX: Z51.81 Encounter for therapeutic drug level monitoring (principal); Z79.899 Other long term (current) drug therapy

== ENCOUNTER → 2022-08-16 | Outpatient (CLI) | payer MEDICARE, OTHER | END | disposition home or self-care (01) | LOC: LAB 11:00 → LAB SHORT 11:00 | DX: R30.0 Dysuria (principal) | CPT/HCPCS: 87086 ==

== ENCOUNTER 2022-09-13 14:01 | Day surgery (SDC) | payer MEDICARE, OTHER ==
[~2022-09-13] VITALS: Ht 167.6 cm; Wt 97.9 kg
[2022-09-13] MEDS ORDERED: LISI20 (14:23)
[2022-09-13] MEDS ORDERED: ATOR40TA (14:23)
[2022-09-13] MEDS ORDERED: EZET10 (14:24)
[2022-09-13] MEDS ORDERED: ONDA4ODT (14:24)
== END 2022-09-13 15:55 | disposition home or self-care (01) ==
LOC: ORSCSDS 14:01
PROVIDERS: Internal Medicine Gastroenterology
PROC: 0DJ08ZZ Inspection of Upper Intestinal Tract, Via Natural or Artificial Opening Endoscopic (ICD-10-PCS; principal; 2022-09-13 15:15)
DX: K70.31 Alcoholic cirrhosis of liver with ascites (principal); Z86.19 Personal history of other infectious and parasitic diseases; R12 Heartburn; E11.9 Type 2 diabetes mellitus without complications; E78.5 Hyperlipidemia, unspecified; I25.2 Old myocardial infarction; R56.9 Unspecified convulsions; K21.9 Gastro-esophageal reflux disease without esophagitis; G47.33 Obstructive sleep apnea (adult) (pediatric); I10 Essential (primary) hypertension; I25.10 Atherosclerotic heart disease of native coronary artery without angina pectoris; F17.210 Nicotine dependence, cigarettes, uncomplicated; K76.6 Portal hypertension; K31.89 Other diseases of stomach and duodenum; Z79.84 Long term (current) use of oral hypoglycemic drugs; Z79.899 Other long term (current) drug therapy
CPT/HCPCS: 82947; A9270; J0330; J0461; J2370; J2405; J2704; J7120; Q9968

== ENCOUNTER 2022-10-31 19:47 | Inpatient (IN) | payer MEDICARE, OTHER ==
[~2022-10-31] VITALS: Ht 167.6 cm; Wt 103.2 kg
[~2022-10-31 19:47] MED LIST changes: +ATOR40TA; +EZET10; +LISI20; +ONDA4ODT
[2022-10-31 20:45] LABS: BASOPHILS PERCENT AUTO 1 % (0-2); EOSINOPHILS ABSOLUTE AUTO 0.65 K/mm3 (0.00-0.68); EOSINOPHILS PERCENT AUTO 6 % (0-6); Hematocrit 29.2 % (37.0-53.0); Hemoglobin 9.9 g/dL (13.5-17.5); IMMATURE GRAN ABSOLUTE AUTO 0.03 K/mm3 (0.00-0.10); IMMATURE GRAN PERCENT AUTO 0 % (0-1); LYMPHOCYTES ABSOLUTE AUTO 4.34 K/mm3 (0.84-5.20); LYMPHOCYTES PERCENT AUTO 40 % (21-46); MONOCYTES ABSOLUTE AUTO 1.88 K/mm3 (0.16-1.47); MONOCYTES PERCENT AUTO 17 % (4-13); Mean Corpuscular HGB 31.9 pg (26.0-34.0); Mean Corpuscular HGB Conc 33.9 g/dL (31.5-36.5); Mean Corpuscular Volume 94 fL (80-100); Mean Platelet Volume 10.9 fL (9.1-12.4); NEUTROPHILS ABSOLUTE AUTO 3.96 K/mm3 (1.96-9.15); NEUTROPHILS PERCENT AUTO 36 % (41-73); Platelet Count 141 K/mm3 (150-400); RDW Coefficient Variation 14.2 % (11.7-14.2); RDW Standard Deviation 48.5 fL (35.1-46.3); White Blood Cell Count 10.96 K/mm3 (4.00-11.30)
[2022-10-31 21:02] LABS: International Normalized Ratio 1.51; Prothrombin Time Results 15.4 Sec (9.7-11.5)
[2022-10-31 21:06] LABS: Albumin, Blood 2.7 g/dL (3.4-5.0); Albumin/Globulin Ratio 0.7 (0.8-1.8); Bilirubin, Total 1.1 mg/dL (0.1-1.0); Bun/Creatinine Ratio 24.5 (12.0-20.0); Calcium, Blood 8.4 mg/dL (8.5-10.1); Creatinine, Blood 1.63 mg/dL (0.60-1.20); Globulin, Blood 4.1 g/dL (2.2-4.0); Potassium, Blood 4.7 mmol/L (3.5-5.5); Total Protein, Blood 6.8 g/dL (6.4-8.2)
[2022-11-01 00:20] LABS: Source, Urine Clean Catch
[2022-11-01 00:42] LABS: Bilirubin, Urine Neg (Neg); Blood, Urine 4+ (Neg); Glucose Qualitative, Urine Neg (Neg); Ketones, Urine Neg (Neg); Leukocyte Esterase, Urine Neg (Neg); Nitrite, Urine Neg (Neg); Protein, Urine 2+ (Neg); Specific Gravity, Urine 1.015 (1.003-1.022); Urobilinogen, Urine NORM (Normal)
[2022-11-01 00:48] LABS: Appearance, Urine Clear (Clear); Color, Urine Yellow (P-Yellow)
[2022-11-01 00:50] LABS: Bacteria Rare /hpf; Squamous Epithelial Cells Rare /hpf (Few); White Blood Cells, Urine 0-2 /hpf (0-5)
[2022-11-01] MEDS ORDERED: ROXICODONE15 MG PO (01:39)
[2022-11-01] MEDS ORDERED: AMLODIPINE BESYL5 MG PO (01:43)
[2022-11-01] MEDS ORDERED: Nadolol20 MG PO (01:43)
[2022-11-01] MEDS ORDERED: [UNRECOGNIZED DRUG - OTHER] (01:43)
[2022-11-01] MEDS ORDERED: IRBESARTAN-HCT1 EAC3 PO (01:44)
--- NOTE | 2022-11-01 02:29 | NUR ---
TRANSFER NOTE THIS RN RECEIVED REPORT VIA TELEPHONE FROM JESSICA AVELAR IN THE ED. PATIENT TO PCU AT 0130 WITH AT BEDSIDE. PATIENT AMBULATED FROM GURNEY TO BED. REPORTING PAIN BUT STEADY GAIT NOTED. PATIENT WITH OCTREOTIDE GTT AND NS INFUSING. ISSA AVELAR ATTEMPTED 2ND IV FOR PROTONIX GTT, PATIENT REFUSED FURTHER ATTEMPTS AT THAT TIME. ADMISSION HX FINISHED AND PATIENT EDUCATED ON NEED FOR SECOND IV. THIS RN ASKED INDUSTRIAL ENGINEERING DIRECTOR JUAN MANUEL TO PLACE POWERGLIDE FOR LAB DRAWS AFTER PATIENT AGREED. PATIENT EDUCATED ON BEING RESPECTFUL TO STAFF AFTER RAISING VOICE AND USING OFFENSIVE LANGUAGE TO ISSA AVELAR. JUAN MANUEL RN AT BEDSIDE ATTEMPTING POWERGLIDE AT THIS TIME. VITALS STABLE. PATIENT ONLY COMPLAINING OF ABDOMINAL PAIN AT THIS TIME. BS+ T/O. PPP. ALERT AND ORIENTED. ABLE TO MAKE NEEDS KNOWN. BED IN LOWEST POSITION AND CALL LIGHT WITHIN REACH.
[2022-11-01 03:26] LABS: BASOPHILS ABSOLUTE AUTO 0.09 K/mm3 (0.00-0.23); BASOPHILS PERCENT AUTO 1 % (0-2); EOSINOPHILS ABSOLUTE AUTO 0.73 K/mm3 (0.00-0.68); EOSINOPHILS PERCENT AUTO 7 % (0-6); Hematocrit 28.4 % (37.0-53.0); Hemoglobin 9.9 g/dL (13.5-17.5); IMMATURE GRAN ABSOLUTE AUTO 0.01 K/mm3 (0.00-0.10); IMMATURE GRAN PERCENT AUTO 0 % (0-1); LYMPHOCYTES ABSOLUTE AUTO 4.76 K/mm3 (0.84-5.20); LYMPHOCYTES PERCENT AUTO 42 % (21-46); MONOCYTES ABSOLUTE AUTO 1.51 K/mm3 (0.16-1.47); MONOCYTES PERCENT AUTO 13 % (4-13); Mean Corpuscular HGB 32.2 pg (26.0-34.0); Mean Corpuscular HGB Conc 34.9 g/dL (31.5-36.5); Mean Corpuscular Volume 93 fL (80-100); Mean Platelet Volume 11.5 fL (9.1-12.4); NEUTROPHILS ABSOLUTE AUTO 4.18 K/mm3 (1.96-9.15); NEUTROPHILS PERCENT AUTO 37 % (41-73); Platelet Count 150 K/mm3 (150-400); RDW Coefficient Variation 13.8 % (11.7-14.2); RDW Standard Deviation 46.8 fL (35.1-46.3); Red Blood Cell Count 3.07 M/mm3 (4.30-5.90); White Blood Cell Count 11.28 K/mm3 (4.00-11.30)
[2022-11-01 04:00] LABS: Albumin, Blood 2.5 g/dL (3.4-5.0); Albumin/Globulin Ratio 0.7 (0.8-1.8); Bilirubin, Total 1.2 mg/dL (0.1-1.0); Bun/Creatinine Ratio 28.9 (12.0-20.0); Calcium, Blood 8.2 mg/dL (8.5-10.1); Creatinine, Blood 1.14 mg/dL (0.60-1.20); Globulin, Blood 3.8 g/dL (2.2-4.0); Potassium, Blood 5.4 mmol/L (3.5-5.5); Total Protein, Blood 6.3 g/dL (6.4-8.2)
--- NOTE | 2022-11-01 04:48 | NUR ---
SHIFT SUMMARY NO ACUTE CHANGES OVERNIGHT. VITALS STABLE. HGB STABLE AT 9.9. PATIENT CONTINUES TO BE AGITATED EASILY WITH CARE AND BY STAFF. PATIENT AMBULATED TO BATHROOM WITH JAIMIE SALAZAR. PCT CAME TO SPEAK TO THIS RN AFTERWARDS AND STATED THAT A BOTTLE OF PILLS FELL OUT OF THE PATIENT'S POCKET. THIS RN TO BEDSIDE TO DISCUSS MEDICATION SAFETY AND NEEDING TO HAVE BRING MEDICATION HOME. PATIENT STATING THAT "IT'S JUST HIS HEARTBURN PILL". THIS RN REINFORCED EDUCATION ABOUT NEEDING TO FOLLOW THE PRESCRIBED MEDICATIONS WHILE HERE AND THAT WE HAVE HIS HOME MEDICATION LIST AND WILL ORDER MEDICATIONS THAT ARE APPROPRIATE DURING HIS STAY. THE PATIENT GAVE BOTTLE OF PILLS TO . VERBALIZED THAT SHE WOULD TAKE THEM HOME. PATIENT BECAME AGITATED WITH THIS RN, STATING "THIS PLACE IS WORSE THAN RETIREMENT. NO OTHER HOSPITALS MAKE ME DO THIS. THAT'S WHY I HATE COMING HERE". THIS RN ATTEMPTED TO FURTHER EDUCATE PATIENT, HOWEVER PATIENT BECAME MORE AGITATED. THIS RN LEFT BEDSIDE AT THIS TIME. BED IN LOWEST POSITION AND CALL LIGHT WITHIN REACH. AT BEDSIDE. PROTONIX GTT, OCTREOTIDE GTT, AND NS INFUSING PER EMAR. THIS RN WILL CONTINUE TO MONITOR UNTIL SHIFT CHANGE AT 0700.
--- NOTE | 2022-11-01 08:11 | NUR ---
AM NOTE Pt alert, oriented x4, calm and cooperative with care this am. Pt up with sba to bathroom with iv pole. Pt reports pain to abd, will medicate per emar. Pt tele 60 nsr, bp stable. Spo2 >90% on ra, breathing even and unlabored. Abd, distended, tender, with hyperactive bt. Pt receiving iv protonix, sandostatin and keppra. Other vss. Will continue to monitor.
[2022-11-01 15:25] LABS: BASOPHILS ABSOLUTE AUTO 0.11 K/mm3 (0.00-0.23); BASOPHILS PERCENT AUTO 1 % (0-2); EOSINOPHILS PERCENT AUTO 8 % (0-6); IMMATURE GRAN ABSOLUTE AUTO 0.02 K/mm3 (0.00-0.10); IMMATURE GRAN PERCENT AUTO 0 % (0-1); LYMPHOCYTES ABSOLUTE AUTO 4.29 K/mm3 (0.84-5.20); LYMPHOCYTES PERCENT AUTO 46 % (21-46); MONOCYTES ABSOLUTE AUTO 1.32 K/mm3 (0.16-1.47); MONOCYTES PERCENT AUTO 14 % (4-13); Mean Corpuscular HGB 32.7 pg (26.0-34.0); Mean Corpuscular HGB Conc 35.7 g/dL (31.5-36.5); Mean Corpuscular Volume 92 fL (80-100); Mean Platelet Volume 10.5 fL (9.1-12.4); NEUTROPHILS ABSOLUTE AUTO 2.87 K/mm3 (1.96-9.15); NEUTROPHILS PERCENT AUTO 31 % (41-73); Platelet Count 148 K/mm3 (150-400); RDW Coefficient Variation 13.5 % (11.7-14.2); Red Blood Cell Count 3.06 M/mm3 (4.30-5.90); White Blood Cell Count 9.31 K/mm3 (4.00-11.30)
--- NOTE | 2022-11-01 18:35 | NUR ---
Shift Summary Pt had bm during shift, charted per covering RN. Pt continues with protonix gtt. Dr Ferguson at bedside this afternoon, ok for clear liquids after ultrasound is completed. Other vss. No other acute changes noted. Will continue to monitor.
[2022-11-02 04:11] LABS: Hematocrit 27.9 % (37.0-53.0); Hemoglobin 10.2 g/dL (13.5-17.5)
--- NOTE | 2022-11-02 04:29 | NUR ---
SHIFT SUMMARY NO ACUTE CHANGES OVERNIGHT. VITALS STABLE. PROTONIX, OCTREOTIDE, AND LR INFUSING PER EMAR. NO N/V. THIS RN DID NOT SEE ANY BLACK STOOLS, PATIENT'S SPOUSE REPORTS A BLACK TARRY STOOL YESTERDAY. INDEPENDENT WITH ADL'S. SBA D/T LINES. PATIENT ON CLEAR LIQUID DIET. BED IN LOWEST POSITION AND CALL LIGHT WITHIN REACH. THIS RN WILL CONTINUE TO MONITOR UNTIL SHIFT CHANGE AT 0700.
[2022-11-02 05:08] LABS: Albumin, Blood 2.3 g/dL (3.4-5.0); Albumin/Globulin Ratio 0.6 (0.8-1.8); Bilirubin, Total 1.9 mg/dL (0.1-1.0); Bun/Creatinine Ratio 22.9 (12.0-20.0); Calcium, Blood 8.5 mg/dL (8.5-10.1); Creatinine, Blood 0.79 mg/dL (0.60-1.20); Total Protein, Blood 6.3 g/dL (6.4-8.2)
--- NOTE | 2022-11-02 16:26 | NUR ---
Patient confirms NPO status and agrees with scheduled surgery. History, Chart, Medications and Allergies reviewed before start of procedure.Pre-Op teaching done. Pt verbalizes understanding.
--- NOTE | 2022-11-02 16:27 | NUR ---
11/02/22 1627 Sanchez Cotton History, Chart, Medications and Allergies reviewed before start of procedure.MONITOR INTACT WITH CONTINUOUS PULSE OXIMETRY, CONTINUOUS END TITAL CO2, AND INTERMITTENT BLOOD PRESSURE.O2 VIA N/C INTACT THROUGHOUT SEDATION/PROCEDURE.Bite Block Placed. Patient confirms NPO status and agrees with scheduled surgery. See Anesthesia record.
--- NOTE | 2022-11-02 17:53 | NUR ---
SHIFT SUMMARY PT ORIENTED X4, ON RA. NPO PENDING UPPER GI SCOPE W/DR. JAMSION. SPOUSE ROOMING IN, UPDATED BOTH PATIENT AND SPOUSE ON PLAN OF CARE. VSS. SBA IN ROOM FOR LINE MANAGEMENT. ENDORSES ABD PAIN, PRNS GIVEN WITH RELIEF. PT WENT FOR SCOPE THIS EVENING, PT BACK IN ROOM AND ADVANCING TO CLD WITHOUT ISSUE. VSS. WILL PASS ON TO NOC RN
--- NOTE | 2022-11-02 20:17 | NUR ---
ASSUMPTION OF CARE THIS RN ASSUMED CARE OF PATIENT AT 1900. REPORT TAKEN FROM PETTY AVELAR. PATIENT ALERT AND ORIENTED FULLY. VITALS STABLE. REPORTS SORE CONSTANT PAIN IN ABDOMEN; MEDICATING PER EMAR. IN ROOM STAYING OVERNIGHT. INDEPENDENT WITH ADL'S. LR, OCTREOTIDE AND PROTONIX GTT INFUSING PER EMAR. ABLE TO MAKE NEEDS KNOWN. BED IN LOWEST POSITION AND CALL LIGHT WITHIN REACH.
--- NOTE | 2022-11-03 04:29 | NUR ---
SHIFT SUMMARY NO ACUTE CHANGES OVERNIGHT. NO NOTED N/V OR BLACK STOOLS. PATIENT IS ALERT AND ORIENTED FULLY. LR, PROTONIX, AND OCTREOTIDE INFUSING PER EMAR. VITALS STABLE. PATIENT IS INDEPENDENT WITH ADL'S. ABLE TO MAKE NEEDS KNOWN. AT BEDSIDE. PATIENT CONTINUES TO HAVE ABDOMINAL PAIN THAT HE DESCRIBES BEING "SORE". MEDICATING PER EMAR. BED IN LOWEST POSITION AND CALL LIGHT WITHIN REACH. THIS RN WILL CONTINUE TO MONITOR UNTIL SHIFT CHANGE AT 0700.
[2022-11-03 04:35] LABS: Hemoglobin 9.5 g/dL (13.5-17.5)
[2022-11-03 04:49] LABS: International Normalized Ratio 2.02; Prothrombin Time Results 20.3 Sec (9.7-11.5)
[2022-11-03 04:50] LABS: Bun/Creatinine Ratio 26.1 (12.0-20.0); Calcium, Blood 8.2 mg/dL (8.5-10.1); Creatinine, Blood 0.73 mg/dL (0.60-1.20); Potassium, Blood 4.1 mmol/L (3.5-5.5)
--- NOTE | 2022-11-03 08:58 | NUR ---
CARE ASSUMPTION This RN assumed care at 0700. vital signs table. tele sr 60s. spo2 >95% on room air. patient is alert and oriented x4. patient uses call light appropriately. Patient is indepdent in the room. patient reports no shortness of breath. patient reports no chest pain. patient reports left side pain rated at 7 on scale 0-10, and reports back pain rated at 9 on scale 0-10. patient medicated per emar. see shift assessment for further detials. patient at bedside. patient and both updated on plan of care and this RN answered any questions the patient or had. Both verbalized understanding of the current plan of care. MD finn and betty in to see patient this AM. call light within reach and bed in lowest position.
--- NOTE | 2022-11-03 11:38 | NUR ---
UPDATE MD Engstorm in to see patient. Patient will have a follow up with mds office as an outpatient for a colonoscopy.
[2022-11-03] MEDS ORDERED: SULTRIDS PO (12:41)
[2022-11-03] MEDS ORDERED: VISBIOME 112.51 EACH PO (12:43)
--- NOTE | 2022-11-03 13:11 | NUR ---
DISCHARGE This RN went over discharge education with the patient and patient . This RN went over preop teaching for colonscopy and informed them the bowel prep was sent to [facility], their pharmacy. Patient and patient verbalized understanding and taught this RN what they are supposed to do before the procedure and what foods and medication to avoid. This RN went over follow-up appointments. This RN went over new medication and what medication to stop. Patient verbalized understanding. All medications faxed to [facility]. Patient left with all belongings and in no distress. No changes since the start of this RN's shift. Patient left in no distress.
== END 2022-11-03 13:10 | disposition home or self-care (01) | DRG 432 ==
LOC: ER 19:47 → PCU 11-01 01:23
PROVIDERS: Family Medicine; Internal Medicine Gastroenterology; Physician Assistant; Student in an Organized Health Care Education/Training Program; ADMIT Student in an Organized Health Care Education/Training Program
PROC: 5A09357 Assistance with Respiratory Ventilation, Less than 24 Consecutive Hours, Continuous Positive Airway Pressure (ICD-10-PCS; 2022-11-02)
PROC: 0DJ08ZZ Inspection of Upper Intestinal Tract, Via Natural or Artificial Opening Endoscopic (ICD-10-PCS; principal; 2022-11-02 16:30)
DX: K70.30 Alcoholic cirrhosis of liver without ascites (principal); I85.11 Secondary esophageal varices with bleeding; K76.6 Portal hypertension; N17.9 Acute kidney failure, unspecified; D62 Acute posthemorrhagic anemia; Q89.01 Asplenia (congenital); G89.4 Chronic pain syndrome; B19.20 Unspecified viral hepatitis C without hepatic coma; G47.33 Obstructive sleep apnea (adult) (pediatric); R56.9 Unspecified convulsions; E11.9 Type 2 diabetes mellitus without complications; K31.89 Other diseases of stomach and duodenum; J45.909 Unspecified asthma, uncomplicated; I10 Essential (primary) hypertension; F17.210 Nicotine dependence, cigarettes, uncomplicated; F10.11 Alcohol abuse, in remission; K21.9 Gastro-esophageal reflux disease without esophagitis; E78.5 Hyperlipidemia, unspecified; Z90.81 Acquired absence of spleen; Z88.8 Allergy status to other drugs, medicaments and biological substances; Z88.5 Allergy status to narcotic agent; Z87.820 Personal history of traumatic brain injury; Z79.899 Other long term (current) drug therapy; Z79.811 Long term (current) use of aromatase inhibitors; Z79.02 Long term (current) use of antithrombotics/antiplatelets; Z79.84 Long term (current) use of oral hypoglycemic drugs; Z98.890 Other specified postprocedural states
CPT/HCPCS: 76700; 80048; 80053; 81001; 82140; 82947; 85014; 85018; 85025; 85610; 93005; 93010; 94640; 94664; 94760; 94762; 96365; 96375; 96376; 99285-25; A9270; C9113; J0696; J1815; J1953; J2354; J2405; J2704; J2930; J7030; J7050; J7120

== ENCOUNTER 2022-11-06 12:03 | Day surgery (SDC) | payer MEDICARE, OTHER ==
[~2022-11-06] VITALS: Ht 167.6 cm; Wt 105.4 kg
[~2022-11-06 12:03] MED LIST changes: +AMLODIPINE BESYL5 MG PO; +Nadolol20 MG PO; +ROXICODONE15 MG PO; +VISBIOME 112.51 EACH PO; +[UNRECOGNIZED DRUG - OTHER]
--- NOTE | 2022-11-06 14:29 | NUR ---
11/06/22 1429 TERRANCE MARSHALL, DEBORAH TO GIVE SEDATION
--- NOTE | 2022-11-06 15:12 | NUR ---
11/06/22 1512 Zehra Raygoza LAB DRAWN FOR HG AND HCT. RAN TO LAB.
[2022-11-06 15:32] LABS: Hematocrit 26.6 % (37.0-53.0); Hemoglobin 9.4 g/dL (13.5-17.5)
== END 2022-11-06 15:14 | disposition home or self-care (01) ==
LOC: ORSCSDS 12:03
PROVIDERS: Internal Medicine Gastroenterology
PROC: 0DBH8ZX Excision of Cecum, Via Natural or Artificial Opening Endoscopic, Diagnostic (ICD-10-PCS; principal; 2022-11-06 13:15)
DX: R19.5 Other fecal abnormalities (principal); D12.0 Benign neoplasm of cecum; G47.33 Obstructive sleep apnea (adult) (pediatric); E11.9 Type 2 diabetes mellitus without complications; D64.9 Anemia, unspecified; J45.909 Unspecified asthma, uncomplicated; I10 Essential (primary) hypertension; R56.9 Unspecified convulsions; K57.30 Diverticulosis of large intestine without perforation or abscess without bleeding; F17.210 Nicotine dependence, cigarettes, uncomplicated; Z79.84 Long term (current) use of oral hypoglycemic drugs; Z79.899 Other long term (current) drug therapy
CPT/HCPCS: 82947; 85014; 85018; 88305; J2704; J7120

== ENCOUNTER 2022-11-16 18:40 | Emergency (ER) | payer MEDICARE, OTHER ==
[~2022-11-16] VITALS: Ht 167.6 cm; Wt 112.0 kg
[2022-11-16 19:18] LABS: BASOPHILS ABSOLUTE AUTO 0.08 K/mm3 (0.00-0.23); BASOPHILS PERCENT AUTO 1 % (0-2); EOSINOPHILS ABSOLUTE AUTO 0.45 K/mm3 (0.00-0.68); EOSINOPHILS PERCENT AUTO 4 % (0-6); Hematocrit 27.5 % (37.0-53.0); Hemoglobin 9.4 g/dL (13.5-17.5); IMMATURE GRAN ABSOLUTE AUTO 0.03 K/mm3 (0.00-0.10); IMMATURE GRAN PERCENT AUTO 0 % (0-1); LYMPHOCYTES ABSOLUTE AUTO 2.49 K/mm3 (0.84-5.20); LYMPHOCYTES PERCENT AUTO 24 % (21-46); MONOCYTES ABSOLUTE AUTO 1.22 K/mm3 (0.16-1.47); MONOCYTES PERCENT AUTO 12 % (4-13); Mean Corpuscular HGB 32.9 pg (26.0-34.0); Mean Corpuscular HGB Conc 34.2 g/dL (31.5-36.5); Mean Corpuscular Volume 96 fL (80-100); Mean Platelet Volume 11.1 fL (9.1-12.4); NEUTROPHILS ABSOLUTE AUTO 5.93 K/mm3 (1.96-9.15); NEUTROPHILS PERCENT AUTO 58 % (41-73); NRBC ABSOLUTE 0.03 K/mm3 (0.00-0.02); NRBC Auto 0.3 /100 WBC (0.0-0.2); Platelet Count 160 K/mm3 (150-400); RDW Coefficient Variation 15.9 % (11.7-14.2); RDW Standard Deviation 56.1 fL (35.1-46.3); Red Blood Cell Count 2.86 M/mm3 (4.30-5.90)
[2022-11-16] MEDS ORDERED: MAGNESIUM OXID500 MG PO (19:40)
[2022-11-16] MEDS ORDERED: FURO20 PO (19:40)
[2022-11-16 19:41] LABS: Alanine Aminotransfer (ALT/SGP 36 U/L (12-78); Albumin, Blood 2.6 g/dL (3.4-5.0); Albumin/Globulin Ratio 0.7 (0.8-1.8); Alk Phos 156 U/L (50-136); Anion Gap Unable to Calculate mmol/L (6-16); Aspartate Aminotrans (AST/SGOT 50 U/L (12-37); Bilirubin, Total 1.8 mg/dL (0.1-1.0); Blood Urea Nitrogen 10 mg/dL (8-24); Bun/Creatinine Ratio 11.7 (12.0-20.0); CO2, Blood 27 mmol/L (21-32); Calcium, Blood 8.4 mg/dL (8.5-10.1); Chloride, Blood 109 mmol/L (98-108); Creatinine, Blood 0.86 mg/dL (0.60-1.20); Globulin, Blood 3.9 g/dL (2.2-4.0); Glomerular Filtration Rate 112 (60-); Glucose, Blood 131 mg/dL (70-99); Potassium, Blood 4.7 mmol/L (3.5-5.5); Sodium, Blood 135 mmol/L (136-145); Total Protein, Blood 6.5 g/dL (6.4-8.2)
[2022-11-16] MEDS ORDERED: Amlodipine Bes2.5 MG (19:41)
[2022-11-16] MEDS ORDERED: OXYC15ER PO (19:41)
[2022-11-16] MEDS ORDERED: SPIR25 (19:41)
[2022-11-16] MEDS ORDERED: METO25ER (19:42)
[2022-11-17 00:15] VITALS: BP 119/58
[2022-11-17] MEDS ORDERED: Lasix40 MG PO (00:22)
== END 2022-11-17 00:30 | disposition home or self-care (01) ==
LOC: ER 18:40
PROVIDERS: Student in an Organized Health Care Education/Training Program
DX: R60.0 Localized edema (principal); K74.60 Unspecified cirrhosis of liver; R07.9 Chest pain, unspecified; R06.00 Dyspnea, unspecified; D64.9 Anemia, unspecified; Z88.8 Allergy status to other drugs, medicaments and biological substances; Z88.6 Allergy status to analgesic agent; Z88.5 Allergy status to narcotic agent; Z79.899 Other long term (current) drug therapy; Z79.84 Long term (current) use of oral hypoglycemic drugs; J45.909 Unspecified asthma, uncomplicated; I10 Essential (primary) hypertension; E78.5 Hyperlipidemia, unspecified; E11.9 Type 2 diabetes mellitus without complications; F17.210 Nicotine dependence, cigarettes, uncomplicated
CPT/HCPCS: 36415; 71046; 80053; 83880; 84484; 85025; 85730; 86850; 86900; 86901; 93005; 93010; 96374; 99284-25; A9270; J1940

== ENCOUNTER 2023-01-08 19:08 | Observation (INO) | payer MEDICARE, OTHER ==
[~2023-01-08] VITALS: Ht 167.6 cm; Wt 108.5 kg
[~2023-01-08 19:08] MED LIST changes: +Amlodipine Bes2.5 MG; -EZET10; +EZET10 PO; +FURO20 PO; +Lasix40 MG PO; +METO25ER; +OXYC15ER PO; +XIFAXAN550 MG PO
[2023-01-09 02:00] LABS: Albumin, Blood 2.5 g/dL (3.4-5.0); Albumin/Globulin Ratio 0.7 (0.8-1.8); Bilirubin, Total 1.6 mg/dL (0.1-1.0); Bun/Creatinine Ratio 10.5 (12.0-20.0); Calcium, Blood 8.2 mg/dL (8.5-10.1); Creatinine, Blood 0.95 mg/dL (0.60-1.20); Globulin, Blood 3.5 g/dL (2.2-4.0); Magnesium, Blood 1.4 mg/dL (1.6-2.4); Potassium, Blood 4.1 mmol/L (3.5-5.5)
[2023-01-09 02:03] LABS: BASOPHILS ABSOLUTE AUTO 0.08 K/mm3 (0.00-0.23); BASOPHILS PERCENT AUTO 1 % (0-2); EOSINOPHILS ABSOLUTE AUTO 0.45 K/mm3 (0.00-0.68); EOSINOPHILS PERCENT AUTO 5 % (0-6); Hematocrit 33.5 % (37.0-53.0); Hemoglobin 11.7 g/dL (13.5-17.5); IMMATURE GRAN ABSOLUTE AUTO 0.04 K/mm3 (0.00-0.10); IMMATURE GRAN PERCENT AUTO 0 % (0-1); LYMPHOCYTES ABSOLUTE AUTO 3.59 K/mm3 (0.84-5.20); LYMPHOCYTES PERCENT AUTO 40 % (21-46); MONOCYTES ABSOLUTE AUTO 1.35 K/mm3 (0.16-1.47); MONOCYTES PERCENT AUTO 15 % (4-13); Mean Corpuscular HGB 32.5 pg (26.0-34.0); Mean Corpuscular HGB Conc 34.9 g/dL (31.5-36.5); Mean Corpuscular Volume 93 fL (80-100); Mean Platelet Volume 10.3 fL (9.1-12.4); NEUTROPHILS ABSOLUTE AUTO 3.39 K/mm3 (1.96-9.15); NEUTROPHILS PERCENT AUTO 38 % (41-73); Platelet Count 154 K/mm3 (150-400); RDW Coefficient Variation 14.3 % (11.7-14.2); RDW Standard Deviation 48.4 fL (35.1-46.3)
[2023-01-09 04:33] VITALS: BP 123/54
--- NOTE | 2023-01-09 05:27 | NUR ---
SHIFT SUMMARY PT ARRIVED TO ROOM IN NO DISTRESS. PT PLACED ON TELE AND ORDERED MAG STARTED. PT DENIES CX PAIN OR SOB. PT HAS BEEN NPO EXCEPT ICE CHIPS. PT IS AWARE OF STRESS TEST TODAY. CALL LIGHT IN REACH.
[2023-01-09 07:37] VITALS: BP 114/50
[2023-01-09 16:29] VITALS: BP 131/62
--- NOTE | 2023-01-09 17:16 | NUR ---
SHIFT SUMMARY PT AOX4 AND USING A URINAL. HE HAD HIS FIRST PORTION OF HIS STRESS TEST TODAY AND THE SECOND PORTION WILL BE COMPLETED TOMORROW. HE IS TO BE NPO AT MIDNIGHT TONIGHT. PT'S MEDICATIONS WERE RECONCILED AND RESTARTED. HE DID C/O SOME PAIN LATER IN THE SHIFT AND WAS MEDICATED PER THE EMAR. PT COOPERATIVE WITH CARE AND CALLS WELL. WILL REPORT TO ONCOMING NURSE.
[2023-01-09 19:17] VITALS: BP 125/72
[2023-01-10 03:30] VITALS: BP 116/53
--- NOTE | 2023-01-10 05:18 | NUR ---
SHIFT SUMMARY PT SITTING UP IN BED DURING BEDSIDE REPORT - PT REPORTS PAIN TOLERABLE - PT REQUESTED PRN OXYCODONE WITH HS MEDS- PT REFUSED LACTALOSE AND STOOL SOFTNER AT HS - PT AND REPORTS PT TOLD TO TAKE BASED ON HOW MANY STOOLS- RIGHT AC IV DRESSING CHANGED D/T LEAKING- IV FLUSHES WITH GOOD BLOOD RETURN- PT ON TELE = SR AT 62-BED LOW POSITION,CALL LIGHT WITHIN REACH
[2023-01-10 08:23] VITALS: BP 115/53
[2023-01-10 10:24] VITALS: BP 136/80
[2023-01-10 13:48] VITALS: BP 117/54
[2023-01-10 19:14] VITALS: BP 146/67
--- NOTE | 2023-01-10 19:52 | NUR ---
SHIFT SUMMARY PATIENT WITH BACK PAIN, RELIEVED BY OXYCODONE. WAITING FOR RESULTS OF STRESS TEST. MENATION GOOD TODAY, PATIENT DECLINED LACTULOSE THIS AFTERNOON DUE TO 2 BMS THIS MORNING.
[2023-01-11 05:12] VITALS: BP 121/61
--- NOTE | 2023-01-11 05:38 | NUR ---
SUMMARY: NO ACUTE EVENTS OVERNIGHT. PATIENT TOOK SHOWER BEFORE BED. PATIENT AT BEDSIDE THROUGHOUT NIGHT. NO COMPLAINTS OF CHETS PAIN OVERNIGHT.
[2023-01-11 05:44] LABS: Mean Corpuscular HGB 32.3 pg (26.0-34.0); Mean Corpuscular HGB Conc 35.3 g/dL (31.5-36.5); Mean Corpuscular Volume 92 fL (80-100); Mean Platelet Volume 10.7 fL (9.1-12.4); Platelet Count 143 K/mm3 (150-400); RDW Coefficient Variation 13.8 % (11.7-14.2); RDW Standard Deviation 46.9 fL (35.1-46.3); Red Blood Cell Count 3.71 M/mm3 (4.30-5.90); White Blood Cell Count 8.45 K/mm3 (4.00-11.30)
[2023-01-11 06:13] LABS: Albumin, Blood 2.4 g/dL (3.4-5.0); Albumin/Globulin Ratio 0.6 (0.8-1.8); Bilirubin, Total 1.8 mg/dL (0.1-1.0); Bun/Creatinine Ratio 12.4 (12.0-20.0); Calcium, Blood 8.4 mg/dL (8.5-10.1); Creatinine, Blood 1.05 mg/dL (0.60-1.20); Globulin, Blood 3.8 g/dL (2.2-4.0); Potassium, Blood 4.2 mmol/L (3.5-5.5); Total Protein, Blood 6.2 g/dL (6.4-8.2)
[2023-01-11 07:20] VITALS: BP 126/61
--- NOTE | 2023-01-11 12:01 | NUR ---
DISCHARGE SUMMARY PATIENT HAD NO ACUTE EVENTS DURING THIS SHIFT. EDUCATION AND MEDICATION PACKETS PROVDIED TO PATIENT. SIGNATURE OBTAINED, HEATH QUINTERO REMOVED IV AND WHEELED PATIENT TO MAIN ENTRANCE FOR SON TO [employer] PATIENT WITH PRIVATE VEHICLE AT 1059 ON 01/10/23
== END 2023-01-11 11:04 | disposition home or self-care (01) ==
LOC: ER 19:08 → MEDS 19:09
PROVIDERS: Internal Medicine; ADMIT Student in an Organized Health Care Education/Training Program
DX: R07.89 Other chest pain (principal); I10 Essential (primary) hypertension; E78.5 Hyperlipidemia, unspecified; K74.60 Unspecified cirrhosis of liver; E11.9 Type 2 diabetes mellitus without complications; J45.909 Unspecified asthma, uncomplicated; K21.9 Gastro-esophageal reflux disease without esophagitis; F17.210 Nicotine dependence, cigarettes, uncomplicated; E66.9 Obesity, unspecified; Z68.37 Body mass index [BMI] 37.0-37.9, adult; Z88.5 Allergy status to narcotic agent; Z88.1 Allergy status to other antibiotic agents; Z88.6 Allergy status to analgesic agent; Z79.84 Long term (current) use of oral hypoglycemic drugs; Z79.899 Other long term (current) drug therapy
CPT/HCPCS: 36415; 78452; 80053; 82947; 83735; 84484; 85025; 85027; 93005; 93010; 93017; 96365; 96372; 96374; 96375; 99285-25; A9270; A9500; G0378; J0280; J1650; J2270; J2785; J3475; J7030; J7050

== ENCOUNTER 2023-03-26 22:40 | Emergency (ER) | payer MEDICARE, OTHER ==
[~2023-03-26] VITALS: Ht 167.6 cm; Wt 104.3 kg
[2023-03-26 23:30] LABS: BASOPHILS ABSOLUTE AUTO 0.06 K/mm3 (0.00-0.23); BASOPHILS PERCENT AUTO 1 % (0-2); EOSINOPHILS PERCENT AUTO 2 % (0-6); Hematocrit 37.9 % (37.0-53.0); Hemoglobin 13.8 g/dL (13.5-17.5); IMMATURE GRAN ABSOLUTE AUTO 0.01 K/mm3 (0.00-0.10); IMMATURE GRAN PERCENT AUTO 0 % (0-1); LYMPHOCYTES ABSOLUTE AUTO 2.26 K/mm3 (0.84-5.20); LYMPHOCYTES PERCENT AUTO 43 % (21-46); MONOCYTES ABSOLUTE AUTO 1.25 K/mm3 (0.16-1.47); MONOCYTES PERCENT AUTO 24 % (4-13); Mean Corpuscular HGB 32.5 pg (26.0-34.0); Mean Corpuscular HGB Conc 36.4 g/dL (31.5-36.5); Mean Corpuscular Volume 89 fL (80-100); Mean Platelet Volume 10.9 fL (9.1-12.4); NEUTROPHILS ABSOLUTE AUTO 1.62 K/mm3 (1.96-9.15); NEUTROPHILS PERCENT AUTO 31 % (41-73); Platelet Count 156 K/mm3 (150-400); RDW Standard Deviation 49.2 fL (35.1-46.3); Red Blood Cell Count 4.25 M/mm3 (4.30-5.90)
[2023-03-26] MEDS ORDERED: IRBESARTAN-HCT1 EAC3 PO (23:50)
[2023-03-26] MEDS ORDERED: ALBU2.5V5 INH (23:51)
[2023-03-26 23:55] LABS: Albumin/Globulin Ratio 0.7 (0.8-1.8); Bilirubin, Total 1.4 mg/dL (0.1-1.0); Bun/Creatinine Ratio 14.9 (12.0-20.0); Calcium, Blood 9.3 mg/dL (8.5-10.1); Creatinine, Blood 0.94 mg/dL (0.60-1.20); Globulin, Blood 4.5 g/dL (2.2-4.0); Magnesium, Blood 1.5 mg/dL (1.6-2.4); Potassium, Blood 5.4 mmol/L (3.5-5.5); Total Protein, Blood 7.5 g/dL (6.4-8.2)
[2023-03-27] MEDS ORDERED: OXYC5 PO (00:31)
[2023-03-27 03:30] VITALS: BP 122/65
[2023-03-27] MEDS ORDERED: METO10 PO (03:55)
[2023-03-27] MEDS ORDERED: ONDA4ODT MM (03:55)
== END 2023-03-27 04:04 | disposition home or self-care (01) ==
LOC: ER 22:40
PROVIDERS: Physician Assistant
DX: B34.9 Viral infection, unspecified (principal); E83.42 Hypomagnesemia; E86.0 Dehydration; I10 Essential (primary) hypertension; J45.909 Unspecified asthma, uncomplicated; E78.5 Hyperlipidemia, unspecified; E11.9 Type 2 diabetes mellitus without complications; K21.9 Gastro-esophageal reflux disease without esophagitis; F17.210 Nicotine dependence, cigarettes, uncomplicated; Z88.8 Allergy status to other drugs, medicaments and biological substances; Z88.6 Allergy status to analgesic agent; Z88.5 Allergy status to narcotic agent; Z79.84 Long term (current) use of oral hypoglycemic drugs; Z79.899 Other long term (current) drug therapy
CPT/HCPCS: 80053; 83735; 85025; 94644; 94664; 96361; 96365; 96366; 96375; 96376; 99284-25; A9270; J1200; J1885; J2405; J2765; J3475; J7030

== ENCOUNTER → 2023-08-23 | Outpatient (CLI) | payer MEDICARE, OTHER ==
[~2023-08-23] MED LIST changes: +METO10 PO; +OXYC5 PO
[2023-08-23 18:40] LABS: Creatinine Urine 65.6 mg/dL (27.00-270.00); Protein, Urine Quantitative 55.1 mg/dL (0.0-11.9)
== END | disposition home or self-care (01) ==
LOC: LAB 17:41 → LAB SHORT 17:41
PROVIDERS: Internal Medicine Nephrology
DX: N18.2 Chronic kidney disease, stage 2 (mild) (principal); D63.1 Anemia in chronic kidney disease; N25.81 Secondary hyperparathyroidism of renal origin; E55.9 Vitamin D deficiency, unspecified; E78.00 Pure hypercholesterolemia, unspecified; D50.9 Iron deficiency anemia, unspecified; R76.9 Abnormal immunological finding in serum, unspecified; R94.5 Abnormal results of liver function studies; R94.6 Abnormal results of thyroid function studies
CPT/HCPCS: 82043; 82570; 84156

== ENCOUNTER → 2023-08-27 | Outpatient (CLI) | payer MEDICARE, OTHER | END | disposition home or self-care (01) | LOC: LAB SHORT 16:16 → LAB 16:16 | DX: L08.9 Local infection of the skin and subcutaneous tissue, unspecified (principal) | CPT/HCPCS: 87070; 87205 ==

== ENCOUNTER 2023-09-01 13:48 | Emergency (ER) | payer MEDICARE, OTHER ==
[~2023-09-01] VITALS: Ht 162.6 cm; Wt 113.4 kg
[2023-09-01 14:49] LABS: Source, Urine Clean Catch
[2023-09-01] MEDS ORDERED: FURO40 PO (14:53)
[2023-09-01] MEDS ORDERED: HYDHCL25 PO (14:55)
[2023-09-01] MEDS ORDERED: ROXICODONE15 MG PO (14:55)
[2023-09-01] MEDS ORDERED: BREO ELLIPTA 11 EAC1 INH (14:56)
[2023-09-01 14:58] LABS: Appearance, Urine Clear (Clear); Bilirubin, Urine Neg (Neg); Blood, Urine 5+ (Neg); Color, Urine Yellow (P-Yellow); Glucose Qualitative, Urine 4+ (Neg); Ketones, Urine Neg (Neg); Leukocyte Esterase, Urine Neg (Neg); Nitrite, Urine Neg (Neg); Protein, Urine 3+ (Neg); Urobilinogen, Urine NORM (Normal)
[2023-09-01 15:09] LABS: Base Excess Venous 3.6 mmol/L; Bicarbonate Venous 27.1 mmol/L (24.0-30.0); PCO2 Venous 42.7 mmHg (38-42); pH Blood Venous 7.42 (7.34-7.37)
[2023-09-01 15:19] LABS: BASOPHILS ABSOLUTE AUTO 0.03 K/mm3 (0.00-0.23); BASOPHILS PERCENT AUTO 0 % (0-2); EOSINOPHILS ABSOLUTE AUTO 0.06 K/mm3 (0.00-0.68); EOSINOPHILS PERCENT AUTO 0 % (0-6); Hematocrit 38.8 % (37.0-53.0); Hemoglobin 13.7 g/dL (13.5-17.5); IMMATURE GRAN ABSOLUTE AUTO 0.08 K/mm3 (0.00-0.10); IMMATURE GRAN PERCENT AUTO 1 % (0-1); LYMPHOCYTES ABSOLUTE AUTO 2.45 K/mm3 (0.84-5.20); LYMPHOCYTES PERCENT AUTO 15 % (21-46); MONOCYTES PERCENT AUTO 13 % (4-13); Mean Corpuscular HGB 31.6 pg (26.0-34.0); Mean Corpuscular HGB Conc 35.3 g/dL (31.5-36.5); Mean Corpuscular Volume 89 fL (80-100); Mean Platelet Volume 9.9 fL (9.1-12.4); NEUTROPHILS ABSOLUTE AUTO 11.97 K/mm3 (1.96-9.15); NEUTROPHILS PERCENT AUTO 71 % (41-73); Platelet Count 194 K/mm3 (150-400); RDW Coefficient Variation 12.8 % (11.7-14.2); RDW Standard Deviation 42.2 fL (35.1-46.3); Red Blood Cell Count 4.34 M/mm3 (4.30-5.90); White Blood Cell Count 16.79 K/mm3 (4.00-11.30)
[2023-09-01 15:33] LABS: Bacteria Few /hpf; Squamous Epithelial Cells Few /hpf (Few)
[2023-09-01 15:34] LABS: Albumin, Blood 2.5 g/dL (3.4-5.0); Albumin/Globulin Ratio 0.6 (0.8-1.8); Bilirubin, Total 0.9 mg/dL (0.1-1.0); Bun/Creatinine Ratio 17.6 (12.0-20.0); Creatinine, Blood 0.91 mg/dL (0.60-1.20); Globulin, Blood 3.9 g/dL (2.2-4.0); Potassium, Blood 4.6 mmol/L (3.5-5.5); Total Protein, Blood 6.4 g/dL (6.4-8.2)
[2023-09-01 15:43] LABS: U Amphetamine Screen Not Detected; U Barbituate Screen Not Detected; U Benzodiazapine Screen Not Detected; U Buprenorphine Screen Not Detected; U Cannabinoids Screen Not Detected; U Cocaine Screen Not Detected; U Methadone Screen Not Detected; U Methamphetamine Screen Not Detected; U Opiates Screen Not Detected; U Oxycodone Screen DETECTED; U Phencyclidine Screen Not Detected
[2023-09-01 18:30] VITALS: BP 152/77
== END 2023-09-01 18:40 | disposition home or self-care (01) ==
LOC: ER 13:48
PROVIDERS: Emergency Medicine; Physician Assistant
DX: E10.65 Type 1 diabetes mellitus with hyperglycemia (principal); I10 Essential (primary) hypertension; K74.60 Unspecified cirrhosis of liver; J44.89 Other specified chronic obstructive pulmonary disease; K21.9 Gastro-esophageal reflux disease without esophagitis; E78.5 Hyperlipidemia, unspecified; Z87.820 Personal history of traumatic brain injury; G47.33 Obstructive sleep apnea (adult) (pediatric); D64.9 Anemia, unspecified; F17.210 Nicotine dependence, cigarettes, uncomplicated; F10.10 Alcohol abuse, uncomplicated; Z73.6 Limitation of activities due to disability; Z79.2 Long term (current) use of antibiotics; Z79.84 Long term (current) use of oral hypoglycemic drugs; Z79.51 Long term (current) use of inhaled steroids; Z79.899 Other long term (current) drug therapy; Z88.5 Allergy status to narcotic agent; Z88.8 Allergy status to other drugs, medicaments and biological substances
CPT/HCPCS: 70450; 71046; 74177; 80053; 81001; 82140; 82803; 85025; 96360-59; 99285-25; A9270; J7030; Q9967

== ENCOUNTER 2023-09-13 18:53 | Emergency (ER) | payer MEDICARE, OTHER ==
[~2023-09-13] VITALS: Ht 165.1 cm; Wt 123.8 kg
[~2023-09-13 18:53] MED LIST changes: +BREO ELLIPTA 11 EAC1 INH; +FURO40 PO; +HYDHCL25 PO
[2023-09-13] MEDS ORDERED: [UNRECOGNIZED DRUG - CODE] PO (20:35)
[2023-09-13] MEDS ORDERED: Propranolol HCl60 MG PO (20:36)
[2023-09-13] MEDS ORDERED: TAMSULOSIN HCL0.4 M1 PO (20:37)
[2023-09-13] MEDS ORDERED: TIOT18 INH (20:38)
[2023-09-13 20:49] LABS: BASOPHILS ABSOLUTE AUTO 0.05 K/mm3 (0.00-0.23); BASOPHILS PERCENT AUTO 0 % (0-2); EOSINOPHILS ABSOLUTE AUTO 0.12 K/mm3 (0.00-0.68); EOSINOPHILS PERCENT AUTO 1 % (0-6); Hematocrit 38.9 % (37.0-53.0); Hemoglobin 13.5 g/dL (13.5-17.5); IMMATURE GRAN ABSOLUTE AUTO 0.04 K/mm3 (0.00-0.10); IMMATURE GRAN PERCENT AUTO 0 % (0-1); LYMPHOCYTES ABSOLUTE AUTO 2.45 K/mm3 (0.84-5.20); LYMPHOCYTES PERCENT AUTO 20 % (21-46); MONOCYTES ABSOLUTE AUTO 1.31 K/mm3 (0.16-1.47); MONOCYTES PERCENT AUTO 11 % (4-13); Mean Corpuscular HGB 31.5 pg (26.0-34.0); Mean Corpuscular HGB Conc 34.7 g/dL (31.5-36.5); Mean Corpuscular Volume 91 fL (80-100); Mean Platelet Volume 10.7 fL (9.1-12.4); NEUTROPHILS ABSOLUTE AUTO 8.21 K/mm3 (1.96-9.15); NEUTROPHILS PERCENT AUTO 67 % (41-73); Platelet Count 157 K/mm3 (150-400); RDW Coefficient Variation 14.3 % (11.7-14.2); RDW Standard Deviation 47.1 fL (35.1-46.3); Red Blood Cell Count 4.28 M/mm3 (4.30-5.90); White Blood Cell Count 12.18 K/mm3 (4.00-11.30)
[2023-09-13 21:10] LABS: Albumin, Blood 2.5 g/dL (3.4-5.0); Albumin/Globulin Ratio 0.8 (0.8-1.8); Bun/Creatinine Ratio 21.8 (12.0-20.0); Calcium, Blood 8.7 mg/dL (8.5-10.1); Creatinine, Blood 0.73 mg/dL (0.60-1.20); Globulin, Blood 3.3 g/dL (2.2-4.0); Potassium, Blood 4.4 mmol/L (3.5-5.5); Total Protein, Blood 5.8 g/dL (6.4-8.2)
[2023-09-13] MEDS ORDERED: OxyCODONE HCL 5 MG TAB PO ONE (22:05)
[2023-09-14 00:11] VITALS: BP 161/96
== END 2023-09-14 00:17 | disposition home or self-care (01) ==
LOC: ER 18:53
PROVIDERS: Emergency Medicine
DX: R06.00 Dyspnea, unspecified (principal); R10.817 Generalized abdominal tenderness; F17.210 Nicotine dependence, cigarettes, uncomplicated
CPT/HCPCS: 71046; 76705; 80053; 83690; 83880; 84484; 85025; 93005; 93010; 99285-25; A9270

== ENCOUNTER 2023-09-16 15:14 | Emergency (ER) | payer MEDICARE, OTHER ==
[~2023-09-16] VITALS: Ht 165.1 cm; Wt 122.9 kg
[~2023-09-16 15:14] MED LIST changes: +Propranolol HCl60 MG PO; +TAMSULOSIN HCL0.4 M1 PO; +TIOT18 INH; +[UNRECOGNIZED DRUG - CODE] PO
[2023-09-16 16:20] LABS: BASOPHILS ABSOLUTE AUTO 0.07 K/mm3 (0.00-0.23); BASOPHILS PERCENT AUTO 1 % (0-2); EOSINOPHILS ABSOLUTE AUTO 0.17 K/mm3 (0.00-0.68); EOSINOPHILS PERCENT AUTO 2 % (0-6); Hematocrit 38.2 % (37.0-53.0); Hemoglobin 13.1 g/dL (13.5-17.5); IMMATURE GRAN ABSOLUTE AUTO 0.04 K/mm3 (0.00-0.10); IMMATURE GRAN PERCENT AUTO 0 % (0-1); LYMPHOCYTES ABSOLUTE AUTO 2.25 K/mm3 (0.84-5.20); LYMPHOCYTES PERCENT AUTO 20 % (21-46); MONOCYTES ABSOLUTE AUTO 1.28 K/mm3 (0.16-1.47); MONOCYTES PERCENT AUTO 11 % (4-13); Mean Corpuscular HGB Conc 34.3 g/dL (31.5-36.5); Mean Corpuscular Volume 93 fL (80-100); Mean Platelet Volume 10.5 fL (9.1-12.4); NEUTROPHILS ABSOLUTE AUTO 7.58 K/mm3 (1.96-9.15); NEUTROPHILS PERCENT AUTO 67 % (41-73); Platelet Count 133 K/mm3 (150-400); RDW Coefficient Variation 14.8 % (11.7-14.2); RDW Standard Deviation 50.6 fL (35.1-46.3); White Blood Cell Count 11.39 K/mm3 (4.00-11.30)
[2023-09-16 16:47] LABS: Albumin, Blood 2.5 g/dL (3.4-5.0); Albumin/Globulin Ratio 0.7 (0.8-1.8); Bilirubin, Total 1.6 mg/dL (0.1-1.0); Bun/Creatinine Ratio 25.2 (12.0-20.0); Calcium, Blood 8.6 mg/dL (8.5-10.1); Creatinine, Blood 1.07 mg/dL (0.60-1.20); Globulin, Blood 3.4 g/dL (2.2-4.0); Potassium, Blood 4.2 mmol/L (3.5-5.5); Total Protein, Blood 5.9 g/dL (6.4-8.2)
[2023-09-16] MEDS ORDERED: Diazepam 5 MG / ML 2ML SYR IV ONE (18:45)
[2023-09-16] MEDS ORDERED: Magnesium Oxide 400 MG Tab PO ONE (18:45)
[2023-09-16] MEDS ORDERED: Bumetanide 0.25 MG/ML 10ML Vial IV ONE (18:45)
[2023-09-16] MEDS ORDERED: OxyCODONE HCL 5 MG TAB PO ONE (19:05)
[2023-09-16 19:30] VITALS: BP 192/164
[2023-09-16] MEDS ORDERED: CONSTULOSE10 GM/155 PO (19:41)
[2023-09-16] MEDS ORDERED: SOAANZ20 M3 PO (19:41)
== END 2023-09-16 19:42 | disposition home or self-care (01) ==
LOC: ER 15:14
PROVIDERS: Physician Assistant
DX: R60.1 Generalized edema (principal); E83.42 Hypomagnesemia; R25.2 Cramp and spasm; Z88.8 Allergy status to other drugs, medicaments and biological substances; Z88.6 Allergy status to analgesic agent; Z88.5 Allergy status to narcotic agent; Z79.899 Other long term (current) drug therapy; Z79.84 Long term (current) use of oral hypoglycemic drugs; F17.210 Nicotine dependence, cigarettes, uncomplicated; J44.9 Chronic obstructive pulmonary disease, unspecified; I10 Essential (primary) hypertension; E78.5 Hyperlipidemia, unspecified; E11.9 Type 2 diabetes mellitus without complications; G47.33 Obstructive sleep apnea (adult) (pediatric)
CPT/HCPCS: 71046; 80053; 83735; 83880; 84484; 85025; 93005; 93010; 96374; 96375; 99284-25; A9270; J3360

== ENCOUNTER 2024-01-19 23:24 | Emergency (ER) | payer OTHER ==
[~2024-01-19] VITALS: Ht 162.6 cm; Wt 115.2 kg
[~2024-01-19 23:24] MED LIST changes: +COMBIVENT RESPIM4 G1 INH; +CONSTULOSE10 GM/155 PO; +DIAZ5 PO; +GABA100 PO; +OZEMPIC0.25 MG/02 SQ; +POTCHL20ER PO; +SOAANZ20 M3 PO
[2024-01-20 00:11] LABS: BASOPHILS ABSOLUTE AUTO 0.04 K/mm3 (0.00-0.23); BASOPHILS PERCENT AUTO 0 % (0-2); EOSINOPHILS ABSOLUTE AUTO 0.08 K/mm3 (0.00-0.68); EOSINOPHILS PERCENT AUTO 1 % (0-6); Hematocrit 40.6 % (37.0-53.0); Hemoglobin 14.3 g/dL (13.5-17.5); IMMATURE GRAN ABSOLUTE AUTO 0.03 K/mm3 (0.00-0.10); IMMATURE GRAN PERCENT AUTO 0 % (0-1); LYMPHOCYTES ABSOLUTE AUTO 2.64 K/mm3 (0.84-5.20); LYMPHOCYTES PERCENT AUTO 29 % (21-46); MONOCYTES ABSOLUTE AUTO 1.31 K/mm3 (0.16-1.47); MONOCYTES PERCENT AUTO 14 % (4-13); Mean Corpuscular HGB 32.3 pg (26.0-34.0); Mean Corpuscular HGB Conc 35.2 g/dL (31.5-36.5); Mean Corpuscular Volume 92 fL (80-100); Mean Platelet Volume 9.8 fL (9.1-12.4); NEUTROPHILS ABSOLUTE AUTO 5.14 K/mm3 (1.96-9.15); NEUTROPHILS PERCENT AUTO 56 % (41-73); Platelet Count 140 K/mm3 (150-400); RDW Coefficient Variation 13.9 % (11.7-14.2); RDW Standard Deviation 47.3 fL (35.1-46.3); Red Blood Cell Count 4.43 M/mm3 (4.30-5.90); White Blood Cell Count 9.24 K/mm3 (4.00-11.30)
[2024-01-20 00:28] LABS: Albumin, Blood 2.9 g/dL (3.4-5.0); Albumin/Globulin Ratio 0.7 (0.8-1.8); Bilirubin, Total 1.1 mg/dL (0.1-1.0); Bun/Creatinine Ratio 19.8 (12.0-20.0); Calcium, Blood 8.6 mg/dL (8.5-10.1); Creatinine, Blood 1.11 mg/dL (0.60-1.20); Potassium, Blood 5.1 mmol/L (3.5-5.5); Total Protein, Blood 6.9 g/dL (6.4-8.2)
[2024-01-20 00:31] LABS: Influenza A, PCR NEGATIVE (NEGATIVE); Influenza B, PCR NEGATIVE (NEGATIVE); Resp Syncytial Virus, PCR NEGATIVE (NEGATIVE)
[2024-01-20 02:30] VITALS: BP 129/67
[2024-01-20 02:32] LABS: SARS-Cov-2 (COVID-19) PCR, MMC POSITIVE (NEGATIVE)
== END 2024-01-20 02:46 | disposition home or self-care (01) ==
LOC: ER 23:24
PROVIDERS: Student in an Organized Health Care Education/Training Program
DX: U07.1 COVID-19 (principal); Z88.8 Allergy status to other drugs, medicaments and biological substances; Z88.6 Allergy status to analgesic agent; Z79.899 Other long term (current) drug therapy; Z79.84 Long term (current) use of oral hypoglycemic drugs; J44.89 Other specified chronic obstructive pulmonary disease; I10 Essential (primary) hypertension; K21.9 Gastro-esophageal reflux disease without esophagitis; E78.5 Hyperlipidemia, unspecified; E11.9 Type 2 diabetes mellitus without complications; G47.33 Obstructive sleep apnea (adult) (pediatric); F17.210 Nicotine dependence, cigarettes, uncomplicated
CPT/HCPCS: 0241U; 71046; 80053; 83690; 84484; 85025; 93005; 93010; 99284-25

== ENCOUNTER 2024-02-19 20:12 | Emergency (ER) | payer OTHER ==
[~2024-02-19] VITALS: Ht 162.6 cm; Wt 112.5 kg
[2024-02-19 20:44] LABS: BASOPHILS ABSOLUTE AUTO 0.05 K/mm3 (0.00-0.23); BASOPHILS PERCENT AUTO 0 % (0-2); EOSINOPHILS ABSOLUTE AUTO 0.04 K/mm3 (0.00-0.68); EOSINOPHILS PERCENT AUTO 0 % (0-6); Hematocrit 39.3 % (37.0-53.0); Hemoglobin 14.2 g/dL (13.5-17.5); IMMATURE GRAN ABSOLUTE AUTO 0.24 K/mm3 (0.00-0.10); IMMATURE GRAN PERCENT AUTO 1 % (0-1); LYMPHOCYTES ABSOLUTE AUTO 2.53 K/mm3 (0.84-5.20); LYMPHOCYTES PERCENT AUTO 14 % (21-46); MONOCYTES ABSOLUTE AUTO 2.08 K/mm3 (0.16-1.47); MONOCYTES PERCENT AUTO 11 % (4-13); Mean Corpuscular HGB 32.8 pg (26.0-34.0); Mean Corpuscular HGB Conc 36.1 g/dL (31.5-36.5); Mean Corpuscular Volume 91 fL (80-100); Mean Platelet Volume 9.3 fL (9.1-12.4); NEUTROPHILS ABSOLUTE AUTO 13.31 K/mm3 (1.96-9.15); NEUTROPHILS PERCENT AUTO 73 % (41-73); Platelet Count 200 K/mm3 (150-400); RDW Coefficient Variation 13.3 % (11.7-14.2); RDW Standard Deviation 45.2 fL (35.1-46.3); Red Blood Cell Count 4.33 M/mm3 (4.30-5.90); White Blood Cell Count 18.25 K/mm3 (4.00-11.30)
[2024-02-19 21:08] LABS: Albumin, Blood 3.2 g/dL (3.4-5.0); Albumin/Globulin Ratio 0.7 (0.8-1.8); Bilirubin, Direct 0.3 mg/dL (0.0-0.3); Bilirubin, Indirect 0.6 mg/dL (0.1-0.7); Bilirubin, Total 0.9 mg/dL (0.1-1.0); Creatinine, Blood 1.41 mg/dL (0.60-1.20); Globulin, Blood 4.5 g/dL (2.2-4.0); Potassium, Blood 4.7 mmol/L (3.5-5.5); Total Protein, Blood 7.7 g/dL (6.4-8.2)
[2024-02-19] MEDS ORDERED: Ipratropium/Albuterol SulF 2.5-0.5MG/3 ML Amp INH ONE (22:40)
[2024-02-19] MEDS ORDERED: PredniSONE 20 MG Tab PO ONE (22:40)
[2024-02-19 22:47] VITALS: BP 161/102
[2024-02-19 23:08] LABS: Source, Urine Clean Catch
[2024-02-19 23:10] LABS: Bilirubin, Urine Neg (Neg); Blood, Urine 4+ (Neg); Glucose Qualitative, Urine Neg (Neg); Ketones, Urine Neg (Neg); Leukocyte Esterase, Urine Neg (Neg); Nitrite, Urine Neg (Neg); Protein, Urine 2+ (Neg); Urobilinogen, Urine NORM (Normal)
[2024-02-19 23:32] LABS: Appearance, Urine Clear (Clear); Color, Urine Yellow (P-Yellow)
[2024-02-19 23:33] LABS: Amorphous Light (0-Heavy); Bacteria Few /hpf; Hyaline Casts 0-2 /lpf (0-2); Red Blood Cells, Urine 0-2 /hpf (0-2); Squamous Epithelial Cells Few /hpf (Few); White Blood Cells, Urine 0-2 /hpf (0-5)
[2024-02-19] MEDS ORDERED: Prednisone20 MG PO (23:35)
[2024-02-19] MEDS ORDERED: ALBU90OI INH (23:35)
== END 2024-02-19 23:51 | disposition home or self-care (01) ==
LOC: ER 20:12
PROVIDERS: Physician Assistant
DX: J44.1 Chronic obstructive pulmonary disease with (acute) exacerbation (principal); E11.9 Type 2 diabetes mellitus without complications; E78.5 Hyperlipidemia, unspecified; I10 Essential (primary) hypertension; K21.9 Gastro-esophageal reflux disease without esophagitis; F17.210 Nicotine dependence, cigarettes, uncomplicated; Z88.1 Allergy status to other antibiotic agents; Z88.5 Allergy status to narcotic agent; Z79.84 Long term (current) use of oral hypoglycemic drugs; Z79.899 Other long term (current) drug therapy
CPT/HCPCS: 71045; 80053; 81001; 82140; 82248; 83605; 83690; 84484; 85025; 93005; 93010; 94640; 94664; 99285-25; J7512

== ENCOUNTER 2024-05-19 19:04 | Emergency (ER) | payer OTHER ==
[~2024-05-19] VITALS: Ht 165.1 cm; Wt 104.3 kg
[2024-05-19 19:53] LABS: BASOPHILS ABSOLUTE AUTO 0.08 K/mm3 (0.00-0.23); BASOPHILS PERCENT AUTO 1 % (0-2); EOSINOPHILS ABSOLUTE AUTO 0.16 K/mm3 (0.00-0.68); EOSINOPHILS PERCENT AUTO 1 % (0-6); Hematocrit 36.5 % (37.0-53.0); IMMATURE GRAN ABSOLUTE AUTO 0.05 K/mm3 (0.00-0.10); IMMATURE GRAN PERCENT AUTO 0 % (0-1); LYMPHOCYTES ABSOLUTE AUTO 2.85 K/mm3 (0.84-5.20); LYMPHOCYTES PERCENT AUTO 24 % (21-46); MONOCYTES ABSOLUTE AUTO 1.41 K/mm3 (0.16-1.47); MONOCYTES PERCENT AUTO 12 % (4-13); Mean Corpuscular HGB 32.5 pg (26.0-34.0); Mean Corpuscular HGB Conc 35.6 g/dL (31.5-36.5); Mean Corpuscular Volume 91 fL (80-100); Mean Platelet Volume 9.2 fL (9.1-12.4); NEUTROPHILS ABSOLUTE AUTO 7.34 K/mm3 (1.96-9.15); NEUTROPHILS PERCENT AUTO 62 % (41-73); Platelet Count 174 K/mm3 (150-400); RDW Coefficient Variation 12.9 % (11.7-14.2); RDW Standard Deviation 42.9 fL (35.1-46.3); White Blood Cell Count 11.89 K/mm3 (4.00-11.30)
[2024-05-19 20:14] LABS: International Normalized Ratio 1.34
[2024-05-19 20:17] LABS: Ethanol (Alcohol), Blood, Med <3 mg/dL
[2024-05-19 20:19] LABS: Alanine Aminotransfer (ALT/SGP 28 U/L (12-78); Albumin, Blood 3.2 g/dL (3.4-5.0); Albumin/Globulin Ratio 0.8 (0.8-1.8); Alk Phos 116 U/L (50-136); Anion Gap 13 mmol/L (3-11); Aspartate Aminotrans (AST/SGOT 34 U/L (12-37); Bilirubin, Total 1.1 mg/dL (0.1-1.0); Blood Urea Nitrogen 28 mg/dL (8-24); Bun/Creatinine Ratio 18.2 (12.0-20.0); CO2, Blood 26 mmol/L (21-32); Calcium, Blood 9.4 mg/dL (8.5-10.1); Chloride, Blood 95 mmol/L (98-108); Creatinine, Blood 1.54 mg/dL (0.60-1.20); Globulin, Blood 4.2 g/dL (2.2-4.0); Glomerular Filtration Rate 57 (60-); Glucose, Blood 110 mg/dL (70-99); Potassium, Blood 4.5 mmol/L (3.5-5.5); Sodium, Blood 129 mmol/L (136-145); Total Protein, Blood 7.4 g/dL (6.4-8.2)
[2024-05-19 20:33] LABS: Influenza A, PCR NEGATIVE (NEGATIVE); Influenza B, PCR NEGATIVE (NEGATIVE); Resp Syncytial Virus, PCR NEGATIVE (NEGATIVE); SARS-Cov-2 (COVID-19) PCR, MMC NEGATIVE (NEGATIVE)
[2024-05-19 20:49] LABS: Magnesium, Blood 1.7 mg/dL (1.6-2.4)
[2024-05-19] MEDS ORDERED: OxyCODONE HCL 5 MG TAB PO ONE (21:55)
[2024-05-19 22:06] LABS: Source, Urine Clean Catch
[2024-05-19 22:10] LABS: Bilirubin, Urine Neg (Neg); Blood, Urine 2+ (Neg); Glucose Qualitative, Urine Neg (Neg); Ketones, Urine Neg (Neg); Leukocyte Esterase, Urine Neg (Neg); Nitrite, Urine Neg (Neg); Protein, Urine Neg (Neg); Urobilinogen, Urine NORM (Normal); pH, Urine 6.5 (5.0-8.0)
[2024-05-19 22:14] LABS: Appearance, Urine Clear (Clear); Color, Urine Yellow (P-Yellow)
[2024-05-19 22:29] LABS: U Amphetamine Screen Not Detected; U Barbituate Screen Not Detected; U Benzodiazapine Screen Not Detected; U Buprenorphine Screen Not Detected; U Cannabinoids Screen Not Detected; U Cocaine Screen Not Detected; U Methadone Screen Not Detected; U Methamphetamine Screen Not Detected; U Opiates Screen Not Detected; U Oxycodone Screen DETECTED; U Phencyclidine Screen Not Detected
[2024-05-19 22:30] LABS: Bacteria Not Seen /hpf; Red Blood Cells, Urine 0-2 /hpf (0-2); Squamous Epithelial Cells Rare /hpf (Few); White Blood Cells, Urine Not Seen /hpf (0-5)
[2024-05-20] VITALS: BP 148/72
== END 2024-05-20 00:02 | disposition home or self-care (01) ==
LOC: ER 19:04
PROVIDERS: Emergency Medicine
DX: R41.82 Altered mental status, unspecified (principal); Z88.6 Allergy status to analgesic agent; Z88.8 Allergy status to other drugs, medicaments and biological substances; Z88.5 Allergy status to narcotic agent; Z79.899 Other long term (current) drug therapy; Z79.84 Long term (current) use of oral hypoglycemic drugs; Z79.52 Long term (current) use of systemic steroids; E11.9 Type 2 diabetes mellitus without complications; J44.9 Chronic obstructive pulmonary disease, unspecified; E78.5 Hyperlipidemia, unspecified; M19.90 Unspecified osteoarthritis, unspecified site; I10 Essential (primary) hypertension; K21.9 Gastro-esophageal reflux disease without esophagitis; J45.909 Unspecified asthma, uncomplicated; F17.210 Nicotine dependence, cigarettes, uncomplicated
CPT/HCPCS: 0241U; 71046; 80053; 80320; 81001; 82140; 83735; 84443; 85025; 85610; 93005; 93010; 99285-25; A9270

== ENCOUNTER 2024-08-30 14:05 | Emergency (ER) | payer OTHER ==
[~2024-08-30] VITALS: Ht 162.6 cm; Wt 104.3 kg
[2024-08-30 14:44] LABS: BASOPHILS PERCENT AUTO 1 % (0-2); EOSINOPHILS ABSOLUTE AUTO 1.34 K/mm3 (0.00-0.68); EOSINOPHILS PERCENT AUTO 13 % (0-6); Hematocrit 36.3 % (37.0-53.0); Hemoglobin 12.6 g/dL (13.5-17.5); IMMATURE GRAN ABSOLUTE AUTO 0.03 K/mm3 (0.00-0.10); IMMATURE GRAN PERCENT AUTO 0 % (0-1); LYMPHOCYTES ABSOLUTE AUTO 2.62 K/mm3 (0.84-5.20); LYMPHOCYTES PERCENT AUTO 25 % (21-46); MONOCYTES ABSOLUTE AUTO 1.13 K/mm3 (0.16-1.47); MONOCYTES PERCENT AUTO 11 % (4-13); Mean Corpuscular HGB 32.7 pg (26.0-34.0); Mean Corpuscular HGB Conc 34.7 g/dL (31.5-36.5); Mean Corpuscular Volume 94 fL (80-100); Mean Platelet Volume 10.2 fL (9.1-12.4); NEUTROPHILS ABSOLUTE AUTO 5.34 K/mm3 (1.96-9.15); NEUTROPHILS PERCENT AUTO 51 % (41-73); Platelet Count 110 K/mm3 (150-400); RDW Coefficient Variation 13.5 % (11.7-14.2); RDW Standard Deviation 46.5 fL (35.1-46.3); Red Blood Cell Count 3.85 M/mm3 (4.30-5.90); White Blood Cell Count 10.56 K/mm3 (4.00-11.30)
[2024-08-30 14:55] LABS: International Normalized Ratio 1.35; Prothrombin Time Results 14.1 Sec (9.7-11.5)
[2024-08-30 15:01] LABS: Albumin, Blood 3.2 g/dL (3.4-5.0); Albumin/Globulin Ratio 0.9 (0.8-1.8); Bilirubin, Total 0.7 mg/dL (0.1-1.0); Bun/Creatinine Ratio 15.5 (12.0-20.0); Calcium, Blood 9.1 mg/dL (8.5-10.1); Creatinine, Blood 2.32 mg/dL (0.60-1.20); Globulin, Blood 3.6 g/dL (2.2-4.0); Magnesium, Blood 1.6 mg/dL (1.6-2.4); Phosphorus, Blood 3.9 mg/dL (2.5-4.9); Potassium, Blood 5.1 mmol/L (3.5-5.5); Total Protein, Blood 6.8 g/dL (6.4-8.2)
[2024-08-30 16:40] LABS: CORONAVIRUS COVID-19 AG Negative (NEGATIVE); INFLUENZA A AG Negative (NEGATIVE); INFLUENZA B AG Negative (NEGATIVE)
[2024-08-30] MEDS ORDERED: NS 1,000 ML IV SCH (17:25)
[2024-08-30] MEDS ORDERED: Lactulose 20 GM/30 ML UDC PO ONE (17:55)
[2024-08-30 18:48] VITALS: BP 111/54
== END 2024-08-30 19:42 | disposition home or self-care (01) ==
LOC: ER 14:05
PROVIDERS: Student in an Organized Health Care Education/Training Program
DX: N17.9 Acute kidney failure, unspecified (principal); R53.1 Weakness; R53.83 Other fatigue; F17.210 Nicotine dependence, cigarettes, uncomplicated; E11.9 Type 2 diabetes mellitus without complications; G47.33 Obstructive sleep apnea (adult) (pediatric); K21.9 Gastro-esophageal reflux disease without esophagitis; J44.89 Other specified chronic obstructive pulmonary disease; Z79.51 Long term (current) use of inhaled steroids; Z79.52 Long term (current) use of systemic steroids; Z79.84 Long term (current) use of oral hypoglycemic drugs; Z79.899 Other long term (current) drug therapy; Z88.6 Allergy status to analgesic agent; Z88.5 Allergy status to narcotic agent; Z88.8 Allergy status to other drugs, medicaments and biological substances
CPT/HCPCS: 80053; 82140; 83735; 84100; 84443; 84484; 85025; 85610; 85730; 87428-QW; 93005; 93010; 96360; 99284-25; A9270; J7030

== ENCOUNTER → 2024-09-26 | Outpatient (CLI) | payer OTHER ==
[2024-09-26 17:14] LABS: Microalbumin, Urine Quant. <5.000 mg/L (0.000-20.000); Protein, Urine Quantitative <5.0 mg/dL (0.0-11.9)
== END ==
LOC: LAB 11:00 → LAB SHORT 11:00
PROVIDERS: Internal Medicine Nephrology
DX: N18.2 Chronic kidney disease, stage 2 (mild) (principal); D75.1 Secondary polycythemia; N25.81 Secondary hyperparathyroidism of renal origin; E55.9 Vitamin D deficiency, unspecified; E29.1 Testicular hypofunction; R76.9 Abnormal immunological finding in serum, unspecified; R94.5 Abnormal results of liver function studies; R94.6 Abnormal results of thyroid function studies
CPT/HCPCS: 81050; 82043; 82570; 84156

== ENCOUNTER 2025-01-31 22:27 | Emergency (ER) | payer OTHER ==
[~2025-01-31] VITALS: Ht 162.6 cm; Wt 108.9 kg
[2025-01-31 23:03] LABS: BASOPHILS ABSOLUTE AUTO 0.09 K/mm3 (0.00-0.23); BASOPHILS PERCENT AUTO 1 % (0-2); EOSINOPHILS ABSOLUTE AUTO 0.33 K/mm3 (0.00-0.68); EOSINOPHILS PERCENT AUTO 2 % (0-6); Hematocrit 35.3 % (37.0-53.0); Hemoglobin 12.2 g/dL (13.5-17.5); IMMATURE GRAN ABSOLUTE AUTO 0.07 K/mm3 (0.00-0.10); IMMATURE GRAN PERCENT AUTO 1 % (0-1); LYMPHOCYTES ABSOLUTE AUTO 2.36 K/mm3 (0.84-5.20); LYMPHOCYTES PERCENT AUTO 17 % (21-46); MONOCYTES ABSOLUTE AUTO 1.97 K/mm3 (0.16-1.47); MONOCYTES PERCENT AUTO 14 % (4-13); Mean Corpuscular HGB 31.6 pg (26.0-34.0); Mean Corpuscular HGB Conc 34.6 g/dL (31.5-36.5); Mean Corpuscular Volume 92 fL (80-100); Mean Platelet Volume 9.6 fL (9.1-12.4); NEUTROPHILS PERCENT AUTO 66 % (41-73); Platelet Count 176 K/mm3 (150-400); RDW Coefficient Variation 13.8 % (11.7-14.2); RDW Standard Deviation 46.6 fL (35.1-46.3); Red Blood Cell Count 3.86 M/mm3 (4.30-5.90); White Blood Cell Count 14.22 K/mm3 (4.00-11.30)
[2025-01-31] MEDS ORDERED: Aspirin 325 MG Tab PO ONE (23:05)
[2025-01-31] MEDS ORDERED: Nitroglycerin 0.4 MG SUBL SL ONE (23:05)
[2025-01-31 23:22] LABS: Albumin, Blood 3.6 g/dL (3.4-5.0); Albumin/Globulin Ratio 0.8 (0.8-1.8); Bilirubin, Total 1.1 mg/dL (0.1-1.0); Bun/Creatinine Ratio 20.7 (12.0-20.0); Calcium, Blood 9.3 mg/dL (8.5-10.1); Creatinine, Blood 1.16 mg/dL (0.60-1.20); Globulin, Blood 4.5 g/dL (2.2-4.0); Potassium, Blood 4.6 mmol/L (3.5-5.5); Total Protein, Blood 8.1 g/dL (6.4-8.2)
[2025-02-01] MEDS ORDERED: FentaNYL Citrate 50 MCG/ML 2 ML Injection IV ONE (01:25)
[2025-02-01 02:44] VITALS: BP 137/61
== END 2025-02-01 02:44 | disposition home or self-care (01) ==
LOC: ER 22:27
PROVIDERS: Student in an Organized Health Care Education/Training Program
DX: R07.9 Chest pain, unspecified (principal); E11.9 Type 2 diabetes mellitus without complications; G43.909 Migraine, unspecified, not intractable, without status migrainosus; E78.5 Hyperlipidemia, unspecified; I10 Essential (primary) hypertension; K21.9 Gastro-esophageal reflux disease without esophagitis; J44.89 Other specified chronic obstructive pulmonary disease; F17.210 Nicotine dependence, cigarettes, uncomplicated; Z79.52 Long term (current) use of systemic steroids; Z79.899 Other long term (current) drug therapy; Z79.51 Long term (current) use of inhaled steroids; Z79.84 Long term (current) use of oral hypoglycemic drugs; Z88.5 Allergy status to narcotic agent; Z88.8 Allergy status to other drugs, medicaments and biological substances
CPT/HCPCS: 71046; 80053; 83690; 84484; 85025; 93005; 93010; 96374; 99285-25; A9270; J3010

== ENCOUNTER 2025-02-03 21:36 | Inpatient (IN) | payer OTHER ==
[~2025-02-03] VITALS: Ht 162.6 cm; Wt 102.1 kg
[~2025-02-03 21:36] MED LIST changes: -SODCHL1 PO
[2025-02-03] MEDS ORDERED: FentaNYL Citrate 50 MCG/ML 2 ML Injection IV ONE (21:55)
[2025-02-03] MEDS ORDERED: Ondansetron HCl 2 MG / ML 2ML Vial IV ONE (21:55)
[2025-02-03] MEDS ORDERED: Dexamethasone Sod Phos 10 MG/ML 1ML VIAL IV ONE (23:45)
[2025-02-04] MEDS ORDERED: Ondansetron HCl 2 MG / ML 2ML Vial IV PRN (00:55)
[2025-02-04] MEDS ORDERED: NS 1,000 ML IV SCH (01:00)
[2025-02-04] MEDS ORDERED: FentaNYL Citrate 50 MCG/ML 2 ML Injection IV PRN (01:15)
[2025-02-04 01:59] LABS: BASOPHILS ABSOLUTE AUTO 0.02 K/mm3 (0.00-0.23); BASOPHILS PERCENT AUTO 0 % (0-2); EOSINOPHILS ABSOLUTE AUTO 0.00 K/mm3 (0.00-0.68); EOSINOPHILS PERCENT AUTO 0 % (0-6); Hematocrit 33.8 % (37.0-53.0); Hemoglobin 12.2 g/dL (13.5-17.5); Magnesium, Blood 1.8 mg/dL (1.6-2.4); Mean Corpuscular HGB Conc 36.1 g/dL (31.5-36.5); Mean Corpuscular Volume 90 fL (80-100); NRBC ABSOLUTE 0.00 K/mm3 (0.00-0.02); NRBC Auto 0.0 /100 WBC (0.0-0.2); Platelet Count 188 K/mm3 (150-400); RDW Coefficient Variation 12.8 % (11.7-14.2); RDW Standard Deviation 42.2 fL (35.1-46.3)
[2025-02-04 02:02] LABS: IMMATURE GRAN ABSOLUTE AUTO 0.10 K/mm3 (0.00-0.10); IMMATURE GRAN PERCENT AUTO 1 % (0-1); LYMPHOCYTES ABSOLUTE AUTO 0.56 K/mm3 (0.84-5.20); LYMPHOCYTES PERCENT AUTO 5 % (21-46); MONOCYTES ABSOLUTE AUTO 0.06 K/mm3 (0.16-1.47); MONOCYTES PERCENT AUTO 1 % (4-13); NEUTROPHILS ABSOLUTE AUTO 9.82 K/mm3 (1.96-9.15); NEUTROPHILS PERCENT AUTO 93 % (41-73)
[2025-02-04 02:04] LABS: Alanine Aminotransfer (ALT/SGP 39 U/L (12-78); Albumin, Blood 3.2 g/dL (3.4-5.0); Albumin/Globulin Ratio 0.8 (0.8-1.8); Anion Gap 8 mmol/L (3-11); Aspartate Aminotrans (AST/SGOT 41 U/L (12-37); Bilirubin, Total 0.7 mg/dL (0.1-1.0); Blood Urea Nitrogen 23 mg/dL (8-24); CO2, Blood 25 mmol/L (21-32); Calcium, Blood 8.5 mg/dL (8.5-10.1); Chloride, Blood 91 mmol/L (98-108); Creatinine, Blood 0.94 mg/dL (0.60-1.20); Globulin, Blood 4.0 g/dL (2.2-4.0); Glucose, Blood 149 mg/dL (70-99); Potassium, Blood 5.3 mmol/L (3.5-5.5); Sodium, Blood 119 mmol/L (136-145); Total Protein, Blood 7.2 g/dL (6.4-8.2)
[2025-02-04] MEDS ORDERED: NS 1,000 ML IV ONE (02:06)
[2025-02-04 02:34] LABS: C-REACTIVE PROTEIN, EXT RANGE <0.290 mg/dL (0.000-0.300)
[2025-02-04 02:43] VITALS: BP 129/65
[2025-02-04 02:44] LABS: Prothrombin Time Results 13.7 Sec (9.7-11.5)
[2025-02-04 04:52] VITALS: BP 133/70
[2025-02-04 05:27] LABS: Anion Gap 10.0 mmol/L (3-11); Blood Urea Nitrogen 23.0 mg/dL (8-24); CO2, Blood 24.0 mmol/L (21-32); Calcium, Blood 8.6 mg/dL (8.5-10.1); Chloride, Blood 92.0 mmol/L (98-108); Creatinine, Blood 1.06 mg/dL (0.60-1.20); Glucose, Blood 186.0 mg/dL (70-99); Potassium, Blood 4.8 mmol/L (3.5-5.5); Sodium, Blood 121.0 mmol/L (136-145)
[2025-02-04] MEDS ORDERED: Polyethylene Glycol 3350 17 gm PO PRN (06:55)
[2025-02-04] MEDS ORDERED: Ipratropium/Albuterol SulF 2.5-0.5MG/3 ML Amp INH PRN (07:05)
[2025-02-04] MEDS ORDERED: Albuterol HFA200 ACT/6.7 GM INH INH PRN (07:05)
[2025-02-04] MEDS ORDERED: Formoterol/Mometasone MDI 5/100 mcg 13 GM INH SCH (07:05)
[2025-02-04 07:18] VITALS: BP 117/70
[2025-02-04 10:26] LABS: Sodium, Blood 122 mmol/L (136-145)
[2025-02-04 10:40] LABS: Osmolality, Serum 287 mos/KG (275-300)
[2025-02-04 15:22] VITALS: BP 133/74
[2025-02-04 15:57] LABS: Anion Gap 10.0 mmol/L (3-11); Blood Urea Nitrogen 22.0 mg/dL (8-24); CO2, Blood 22.0 mmol/L (21-32); Calcium, Blood 9.3 mg/dL (8.5-10.1); Chloride, Blood 98.0 mmol/L (98-108); Creatinine, Blood 0.91 mg/dL (0.60-1.20); Glucose, Blood 179.0 mg/dL (70-99); Potassium, Blood 4.5 mmol/L (3.5-5.5); Sodium, Blood 125.0 mmol/L (136-145)
--- NOTE | 2025-02-04 18:36 | NUR ---
PATIENT RESTING MOST OF SHIFT ASKING FOR MEDICATION EVERY 2 HOURS ORDERED FOR PAIN. PATIENT COOPERATIVE WITH CARE AND ABLE TO REST. PATIENT HOPING TO DISCHARGE TOMORROW. NO CONCERNS AND CALL LIGHT WITHIN REACH.
[2025-02-04 19:30] VITALS: BP 146/80
[2025-02-05 00:55] VITALS: BP 144/67
[2025-02-05] MEDS ORDERED: FentaNYL Citrate 50 MCG/ML 2 ML Injection IV PRN (02:40)
[2025-02-05 04:33] VITALS: BP 142/70
[2025-02-05 05:30] LABS: Hematocrit 31.9 % (37.0-53.0); Hemoglobin 11.6 g/dL (13.5-17.5)
[2025-02-05 06:00] LABS: Alanine Aminotransfer (ALT/SGP 40.0 U/L (12-78); Albumin, Blood 3.0 g/dL (3.4-5.0); Albumin/Globulin Ratio 0.8 (0.8-1.8); Anion Gap 8.0 mmol/L (3-11); Aspartate Aminotrans (AST/SGOT 32.0 U/L (12-37); Bilirubin, Direct 0.2 mg/dL (0.0-0.3); Bilirubin, Indirect 0.2 mg/dL (0.1-0.7); Bilirubin, Total 0.4 mg/dL (0.1-1.0); Blood Urea Nitrogen 25.0 mg/dL (8-24); CO2, Blood 25.0 mmol/L (21-32); Calcium, Blood 8.6 mg/dL (8.5-10.1); Chloride, Blood 101.0 mmol/L (98-108); Creatinine, Blood 0.88 mg/dL (0.60-1.20); Globulin, Blood 3.7 g/dL (2.2-4.0); Glucose, Blood 187.0 mg/dL (70-99); Magnesium, Blood 2.2 mg/dL (1.6-2.4); Phosphorus, Blood 2.0 mg/dL (2.5-4.9); Potassium, Blood 4.6 mmol/L (3.5-5.5); Sodium, Blood 129.0 mmol/L (136-145); Thyroid Stimulating Hormone 0.268 uIU/mL (0.360-4.800); Total Protein, Blood 6.7 g/dL (6.4-8.2); Uric Acid, Blood 5.9 mg/dL (3.5-7.2)
--- NOTE | 2025-02-05 06:42 | NUR ---
VINER OPERATOR SUMMARY PT A&OX4. VSS, EXCEPT SLIGHTLY ELEVATED BP. PT REQUESTING FENTANYL Q2H AND OXYCODONE Q4H. SEE MAR FOR DETAILS. PT VOICED NO IMPROVEMENT WITH MOST DOSES EXCEPT LAST DOSE OF OXYCODONE. PT VOICES NEEDS APPROPRIATELY AND SLEPT INTERMITTENTLY THROUGHOUT THE SHIFT. BED IN LOWEST POSITION, BED WHEELS LOCKED, PERSONAL BELONGINGS & CALL LIGHT WITHIN REACH FOR SAFETY.
[2025-02-05] MEDS ORDERED: Sodium Phosphate 20 MM in NS 500 ML IV ONE (07:10)
[2025-02-05 07:29] VITALS: BP 117/65
[2025-02-05 11:25] VITALS: BP 152/74
[2025-02-05] MEDS ORDERED: SODCHL1 PO (12:20)
--- NOTE | 2025-02-05 14:03 | NUR ---
PATIENT IV FLUID ADMINISTERED PER ORDER THEN DISCHARGED HOME WITH INSTRUCTIONS REVIEWED ON FOLLOW UP APPOINTMENTS, CALLING MD OFFICE, FLUID RESTRICTIONS, DIET TYPE AND MEDICATION CHANGES. PATIENT HAD NO QUESTIONS OR CONCERNS
[2025-02-06] MEDS ORDERED: Misc. Injectable SC SCH (09:00)
== END 2025-02-05 14:36 | disposition home or self-care (01) | DRG 641 ==
LOC: ER 21:36 → MEDS 21:37
PROVIDERS: Internal Medicine Nephrology; ADMIT Student in an Organized Health Care Education/Training Program
DX: E87.1 Hypo-osmolality and hyponatremia (principal); I31.9 Disease of pericardium, unspecified; J44.1 Chronic obstructive pulmonary disease with (acute) exacerbation; I12.9 Hypertensive chronic kidney disease with stage 1 through stage 4 chronic kidney disease, or unspecified chronic kidney disease; E11.22 Type 2 diabetes mellitus with diabetic chronic kidney disease; N18.30 Chronic kidney disease, stage 3 unspecified; I25.2 Old myocardial infarction; G47.33 Obstructive sleep apnea (adult) (pediatric); D63.1 Anemia in chronic kidney disease; E78.5 Hyperlipidemia, unspecified; J44.89 Other specified chronic obstructive pulmonary disease; K70.30 Alcoholic cirrhosis of liver without ascites; Z87.19 Personal history of other diseases of the digestive system; E83.39 Other disorders of phosphorus metabolism; R56.9 Unspecified convulsions; K21.9 Gastro-esophageal reflux disease without esophagitis; Z86.19 Personal history of other infectious and parasitic diseases; N28.9 Disorder of kidney and ureter, unspecified; F17.210 Nicotine dependence, cigarettes, uncomplicated; Z87.820 Personal history of traumatic brain injury; Z90.81 Acquired absence of spleen; Z95.5 Presence of coronary angioplasty implant and graft; Z88.5 Allergy status to narcotic agent; Z88.6 Allergy status to analgesic agent; Z88.8 Allergy status to other drugs, medicaments and biological substances; Z79.84 Long term (current) use of oral hypoglycemic drugs; Z79.51 Long term (current) use of inhaled steroids; Z79.52 Long term (current) use of systemic steroids; Z79.85 Long-term (current) use of injectable non-insulin antidiabetic drugs; Z98.890 Other specified postprocedural states; Z79.891 Long term (current) use of opiate analgesic; Z79.899 Other long term (current) drug therapy; R07.89 Other chest pain
CPT/HCPCS: 36415; 71045; 71260; 80048; 80053; 82248; 82550; 82947; 83735; 83930; 83935; 84100; 84295; 84300; 84439; 84443; 84481; 84484; 84550; 85007; 85014; 85018; 85025; 85027; 85610; 86140; 93005; 93010; 93306; 94640; 94664; 94762; 96361; 96374-59; 96375; 96375-59; 96376; 99285-25; A9270; G0378; J1100; J2405; J3010; J7030; J7040; J7512; Q9967

== ENCOUNTER → 2025-02-03 | Outpatient (CLI) | payer OTHER ==
[~2025-02-03] MED LIST changes: +SODCHL1 PO
[2025-02-03 19:47] LABS: Hematocrit 33.1 % (37.0-53.0); Hemoglobin 11.8 g/dL (13.5-17.5); Mean Corpuscular HGB Conc 35.6 g/dL (31.5-36.5); Mean Corpuscular Volume 90 fL (80-100); NRBC ABSOLUTE 0.00 K/mm3 (0.00-0.02); NRBC Auto 0.0 /100 WBC (0.0-0.2); Platelet Count 180 K/mm3 (150-400); RDW Coefficient Variation 13.2 % (11.7-14.2); RDW Standard Deviation 43.8 fL (35.1-46.3)
[2025-02-03 20:32] LABS: Alanine Aminotransfer (ALT/SGP 38.0 U/L (12-78); Albumin, Blood 3.3 g/dL (3.4-5.0); Albumin/Globulin Ratio 0.8 (0.8-1.8); Anion Gap 7.0 mmol/L (3-11); Aspartate Aminotrans (AST/SGOT 32.0 U/L (12-37); Bilirubin, Total 0.6 mg/dL (0.1-1.0); Blood Urea Nitrogen 21.0 mg/dL (8-24); CO2, Blood 28.0 mmol/L (21-32); Calcium, Blood 9.2 mg/dL (8.5-10.1); Chloride, Blood 91.0 mmol/L (98-108); Creatinine, Blood 1.23 mg/dL (0.60-1.20); Globulin, Blood 3.9 g/dL (2.2-4.0); Glucose, Blood 85.0 mg/dL (70-99); Potassium, Blood 5.0 mmol/L (3.5-5.5); Sodium, Blood 121.0 mmol/L (136-145); Total Protein, Blood 7.2 g/dL (6.4-8.2)
[2025-02-03 20:35] LABS: BASOPHILS ABSOLUTE MAN 0.00 K/mm3 (0.00-0.23); BASOPHILS PERCENT MAN 0 % (0-2); EOSINOPHILS ABSOLUTE MAN 0.52 K/mm3 (0.00-0.68); EOSINOPHILS PERCENT MAN 4 % (0-6); LYMPHOCYTES ABSOLUTE MAN 2.24 K/mm3 (0.84-5.20); LYMPHOCYTES PERCENT MAN 17 % (21-46); MONOCYTES ABSOLUTE MAN 1.45 K/mm3 (0.16-1.47); MONOCYTES PERCENT MAN 11 % (4-13); NEUTROPHILS ABSOLUTE MAN 8.98 K/mm3 (1.96-9.15); SEG NEUTROPHILS PERCENT MAN 68 % (41-73)
== END ==
LOC: LAB 19:23 → LAB SHORT 19:23
PROVIDERS: Nurse Practitioner
DX: J44.1 Chronic obstructive pulmonary disease with (acute) exacerbation (principal); R07.89 Other chest pain
CPT/HCPCS: 80053; 84484; 85007; 85027

== ENCOUNTER 2025-02-16 20:54 | Emergency (ER) | payer OTHER ==
[~2025-02-16] VITALS: Ht 162.6 cm; Wt 98.0 kg
[~2025-02-16 20:54] MED LIST changes: +SODCHL1 PO
[2025-02-16 21:22] LABS: BASOPHILS ABSOLUTE AUTO 0.04 K/mm3 (0.00-0.23); BASOPHILS PERCENT AUTO 0 % (0-2); EOSINOPHILS ABSOLUTE AUTO 0.11 K/mm3 (0.00-0.68); EOSINOPHILS PERCENT AUTO 1 % (0-6); Hematocrit 33.9 % (37.0-53.0); Hemoglobin 12.1 g/dL (13.5-17.5); IMMATURE GRAN ABSOLUTE AUTO 0.11 K/mm3 (0.00-0.10); IMMATURE GRAN PERCENT AUTO 1 % (0-1); LYMPHOCYTES ABSOLUTE AUTO 3.12 K/mm3 (0.84-5.20); LYMPHOCYTES PERCENT AUTO 25 % (21-46); MONOCYTES ABSOLUTE AUTO 1.58 K/mm3 (0.16-1.47); MONOCYTES PERCENT AUTO 13 % (4-13); Mean Corpuscular HGB Conc 35.7 g/dL (31.5-36.5); Mean Corpuscular Volume 92 fL (80-100); NEUTROPHILS ABSOLUTE AUTO 7.73 K/mm3 (1.96-9.15); NEUTROPHILS PERCENT AUTO 61 % (41-73); NRBC ABSOLUTE 0.00 K/mm3 (0.00-0.02); NRBC Auto 0.0 /100 WBC (0.0-0.2); Platelet Count 170 K/mm3 (150-400); RDW Coefficient Variation 14.5 % (11.7-14.2); RDW Standard Deviation 49.1 fL (35.1-46.3)
[2025-02-16 21:44] LABS: Alanine Aminotransfer (ALT/SGP 59.0 U/L (12-78); Albumin, Blood 3.0 g/dL (3.4-5.0); Albumin/Globulin Ratio 0.8 (0.8-1.8); Anion Gap 7.0 mmol/L (3-11); Aspartate Aminotrans (AST/SGOT 43.0 U/L (12-37); Bilirubin, Total 1.0 mg/dL (0.1-1.0); Blood Urea Nitrogen 14.0 mg/dL (8-24); CO2, Blood 25.0 mmol/L (21-32); Calcium, Blood 8.3 mg/dL (8.5-10.1); Chloride, Blood 96.0 mmol/L (98-108); Creatinine, Blood 1.29 mg/dL (0.60-1.20); Globulin, Blood 3.6 g/dL (2.2-4.0); Glucose, Blood 141.0 mg/dL (70-99); Potassium, Blood 5.0 mmol/L (3.5-5.5); Sodium, Blood 123.0 mmol/L (136-145); Total Protein, Blood 6.6 g/dL (6.4-8.2)
[2025-02-17] MEDS ORDERED: Ipratropium/Albuterol SulF 2.5-0.5MG/3 ML Amp INH ONE (00:10)
[2025-02-17 00:30] VITALS: BP 130/71
== END 2025-02-17 00:40 | disposition home or self-care (01) ==
LOC: ER 20:54
PROVIDERS: Emergency Medicine
DX: I31.9 Disease of pericardium, unspecified (principal); D72.829 Elevated white blood cell count, unspecified; E11.9 Type 2 diabetes mellitus without complications; J44.89 Other specified chronic obstructive pulmonary disease; I10 Essential (primary) hypertension; K21.9 Gastro-esophageal reflux disease without esophagitis; F17.210 Nicotine dependence, cigarettes, uncomplicated; Z88.8 Allergy status to other drugs, medicaments and biological substances; Z88.5 Allergy status to narcotic agent; Z79.84 Long term (current) use of oral hypoglycemic drugs; Z79.899 Other long term (current) drug therapy
CPT/HCPCS: 71046; 80053; 83690; 83880; 84484; 85025; 93005; 93010; 99285-25; A9270; J7512

== ENCOUNTER 2025-03-30 19:55 | Emergency (ER) | payer OTHER ==
[~2025-03-30] VITALS: Ht 165.1 cm; Wt 108.9 kg
[2025-03-30 20:18] LABS: BASOPHILS ABSOLUTE AUTO 0.09 K/mm3 (0.00-0.23); BASOPHILS PERCENT AUTO 1 % (0-2); EOSINOPHILS ABSOLUTE AUTO 0.98 K/mm3 (0.00-0.68); EOSINOPHILS PERCENT AUTO 12 % (0-6); Hematocrit 35.7 % (37.0-53.0); Hemoglobin 12.3 g/dL (13.5-17.5); IMMATURE GRAN ABSOLUTE AUTO 0.02 K/mm3 (0.00-0.10); IMMATURE GRAN PERCENT AUTO 0 % (0-1); LYMPHOCYTES ABSOLUTE AUTO 1.46 K/mm3 (0.84-5.20); LYMPHOCYTES PERCENT AUTO 18 % (21-46); MONOCYTES ABSOLUTE AUTO 0.87 K/mm3 (0.16-1.47); MONOCYTES PERCENT AUTO 11 % (4-13); Mean Corpuscular HGB Conc 34.5 g/dL (31.5-36.5); Mean Corpuscular Volume 96 fL (80-100); NEUTROPHILS ABSOLUTE AUTO 4.65 K/mm3 (1.96-9.15); NEUTROPHILS PERCENT AUTO 58 % (41-73); NRBC ABSOLUTE 0.00 K/mm3 (0.00-0.02); NRBC Auto 0.0 /100 WBC (0.0-0.2); Platelet Count 157 K/mm3 (150-400); RDW Coefficient Variation 14.1 % (11.7-14.2); RDW Standard Deviation 49.7 fL (35.1-46.3)
[2025-03-30 20:45] LABS: Alanine Aminotransfer (ALT/SGP 24.0 U/L (12-78); Albumin, Blood 3.3 g/dL (3.4-5.0); Albumin/Globulin Ratio 0.9 (0.8-1.8); Anion Gap 9.0 mmol/L (3-11); Aspartate Aminotrans (AST/SGOT 41.0 U/L (12-37); Bilirubin, Total 1.0 mg/dL (0.1-1.0); Blood Urea Nitrogen 8.0 mg/dL (8-24); CO2, Blood 21.0 mmol/L (21-32); Calcium, Blood 9.1 mg/dL (8.5-10.1); Chloride, Blood 107.0 mmol/L (98-108); Creatinine, Blood 1.04 mg/dL (0.60-1.20); Globulin, Blood 3.8 g/dL (2.2-4.0); Glucose, Blood 122.0 mg/dL (70-99); Potassium, Blood 5.6 mmol/L (3.5-5.5); Sodium, Blood 131.0 mmol/L (136-145); Total Protein, Blood 7.1 g/dL (6.4-8.2)
[2025-03-30] MEDS ORDERED: FentaNYL Citrate 50 MCG/ML 2 ML Injection IV ONE (22:40)
[2025-03-30] MEDS ORDERED: Ondansetron HCl 2 MG / ML 2ML Vial IV ONE (22:40)
[2025-03-30 23:30] VITALS: BP 122/53
[2025-03-31] MEDS ORDERED: Lidocaine 4% 1 Patch TOP ONE (00:05)
[2025-03-31] MEDS ORDERED: CYCL10 PO (00:24)
[2025-03-31] MEDS ORDERED: LIDO700A20 TOP (00:24)
== END 2025-03-31 00:25 | disposition home or self-care (01) ==
LOC: ER 19:55
PROVIDERS: Student in an Organized Health Care Education/Training Program
DX: R07.89 Other chest pain (principal); E11.9 Type 2 diabetes mellitus without complications; J44.89 Other specified chronic obstructive pulmonary disease; G47.33 Obstructive sleep apnea (adult) (pediatric); E78.5 Hyperlipidemia, unspecified; I10 Essential (primary) hypertension; K21.9 Gastro-esophageal reflux disease without esophagitis; F17.210 Nicotine dependence, cigarettes, uncomplicated; Z88.5 Allergy status to narcotic agent; Z88.1 Allergy status to other antibiotic agents; Z79.84 Long term (current) use of oral hypoglycemic drugs; Z79.899 Other long term (current) drug therapy
CPT/HCPCS: 71046; 80053; 83605; 83690; 83880; 84484; 85025; 93005; 93010; 96374; 96375; 99284-25; A9270; J2405; J3010

== ENCOUNTER → 2025-05-14 | Outpatient (CLI) | payer OTHER ==
[~2025-05-14] MED LIST changes: +LIDO700A20 TOP
[2025-05-14 16:17] LABS: Microalbumin, Urine Quant. <5.000 mg/L (0.000-20.000); Protein, Urine Quantitative <5.0 mg/dL (0.0-11.9)
== END ==
LOC: LAB 14:13 → LAB SHORT 14:13
PROVIDERS: Internal Medicine Nephrology
DX: N18.2 Chronic kidney disease, stage 2 (mild) (principal); D63.1 Anemia in chronic kidney disease; N25.81 Secondary hyperparathyroidism of renal origin; E55.9 Vitamin D deficiency, unspecified; E78.00 Pure hypercholesterolemia, unspecified; R76.9 Abnormal immunological finding in serum, unspecified; R94.5 Abnormal results of liver function studies; R94.6 Abnormal results of thyroid function studies; G60.9 Hereditary and idiopathic neuropathy, unspecified; D51.8 Other vitamin B12 deficiency anemias; D50.9 Iron deficiency anemia, unspecified
CPT/HCPCS: 81050; 82043; 82570; 84156